=== PATIENT | male | born 1955 | race African-American/Black ===

== ENCOUNTER 2019-04-02 08:34 | Emergency (ER) | payer BC ==
[2019-04-02 09:22] LABS: Absolute Lymphocytes (CBC) 2.8 K/uL (0.7-4.9); Absolute Monocytes 0.7 K/uL (0.1-1.3); Absolute Neutrophil 4.7 K/uL (1.8-8.0); Basophils % 0.6 % (0-1.3); Eosinophils % 2.2 % (0-4.4); Hematocrit 41.8 % (39.6-49.0); Lymphocytes % 33.1 % (15.3-44.8); MPV 8.5 fL (7.6-11.3); Monocytes % 7.7 % (3.3-12.3); RBC Red Blood Cell Count 4.55 M/uL (4.33-5.43)
[2019-04-02 09:29] LABS: Albumin 3.6 g/dL (3.4-5.0); Bilirubin Direct 0.1 mg/dL (0-0.2); Bilirubin Total 0.4 mg/dL (0.2-1.0); Potassium 3.8 mmol/L (3.5-5.1); Protein, Total 7.8 g/dL (6.4-8.2)
--- NOTE | 2019-04-02 09:57 | EDPHYS ---
Physician Documentation [facility] Name: Zackery Patrick Age: 63 yrs Sex: Male : 1955 Arrival Date: 04/02/2019 Time: 08:36 Bed 14 Private MD: ED Physician Vinh Granados HPI: 04/02 08:56 This 63 yrs old Black Male presents to ER via Ambulatory with complaints of Vomiting. [facility] 08:56 The patient presents to the emergency department with vomiting, diarrhea. Onset: The [facility] symptoms/episode began/occurred today. Possible causes: unknown. The symptoms are aggravated by nothing. The symptoms are alleviated by nothing. This is a 63 year old male with a history of htn, hlp that presents to the ED with complaints of one episode of vomiting in which he noticed specs of blood. patient also states having a loose bowel movement this morning. denies fever, denies infectious exposure, denies recent antibiotic use. Patient states having a similar episode 3 years ago which resolved without any therapy. Patient denies fever, denies abdominal pain. . Historical: - Allergies: 08:42 No Known Allergies; tw2 - Home Meds: 08:42 unknown BP medication [Active]; tw2 - PMHx: 08:42 Hypertension; Hyperlipidemia; tw2 - PSHx: 08:42 None; tw2 - Immunization history:: Adult Immunizations. - Social history:: Smoking status: . - Ebola Screening: : Patient denies travel to an Ebola-affected area in the 21 days before illness onset. ROS: 08:56 Constitutional: Negative for fever, chills, and weight loss, Cardiovascular: Negative jm for chest pain, palpitations, and edema, Respiratory: Negative for shortness of breath, cough, wheezing, and pleuritic chest pain. 08:56 Back: Negative for injury and pain, MS/Extremity: Negative for injury and deformity, Neuro: Negative for headache, weakness, numbness, tingling, and seizure. 08:56 Abdomen/GI: Positive for vomiting, hematemesis, Negative for diarrhea. 08:56 All other systems are negative. Exam: 08:56 Constitutional: This is a well developed, well nourished patient who is awake, alert, jmm and in no acute distress. Head/Face: atraumatic. Eyes: EOMI, no conjunctival erythema appreciated ENT: Moist Mucus Membranes Neck: Trachea midline, Supple Chest/axilla: Normal chest wall appearance and motion. Cardiovascular: Regular rate and rhythm. No edema appreciated Respiratory: Normal respirations, no respiratory distress appreciated 08:56 Back: Normal ROM Skin: General appearance color normal MS/ Extremity: Moves all extremities, no obvious deformities appreciated, no edema noted to the lower extremities Neuro: Awake and alert, normal gait Psych: Behavior is normal, Mood is normal, Patient is cooperative and pleasant 08:56 Abdomen/GI: Inspection: abdomen appears normal, Bowel sounds: normal, Palpation: abdomen is soft and non-tender, in all quadrants. Vital Signs: 08:42 BP 131 / 80; Pulse 77; Resp 18; Temp 98.4(O); Pulse Ox 97% on R/A; Weight 131.09 kg tw2 (R); Height 5 ft. 9 in. (175.26 cm); Pain 3/10; 09:04 BP 109 / 70; Pulse 75; Resp 18; Pulse Ox 96% on R/A; hj 10:07 BP 118 / 72; Pulse 70; Resp 18; Pulse Ox 100% on R/A; ae4 08:42 Body Mass Index 42.68 (131.09 kg, 175.26 cm) tw2 MDM: 08:49 Patient medically screened. [facility] 09:55 Data reviewed: vital signs, nurses notes. Counseling: I had a detailed discussion with isaias the patient and/or guardian regarding: the historical points, exam findings, and any diagnostic results supporting the discharge/admit diagnosis, lab results, the need for outpatient follow up, to return to the emergency department if symptoms worsen or persist or if there are any questions or concerns that arise at home. ED course: Abdomen is soft and non tender to palpation. Guac is negative. Patient is advised to follow up with GI for further evaluation. Patient is otherwise given strict return precautions. Patient understood and agrees with the plan of care. . 04/02 08:52 Order name: Basic Metabolic Panel [facility] 04/02 08:52 Order name: CBC with Diff; Complete Time: 09:42 [facility] 04/02 08:52 Order name: Creatinine for Radiology; Complete Time: 09:42 [facility] 04/02 08:52 Order name: Hepatic Function; Complete Time: 09:42 [facility] 04/02 08:52 Order name: Lipase; Complete Time: 09:42 [facility] 04/02 08:54 Order name: Basic Metabolic Panel; Complete Time: 09:42 [facility] 04/02 08:52 Order name: IV Saline Lock; Complete Time: 09:02 [facility] 04/02 08:52 Order name: Labs collected and sent; Complete Time: 09:02 [facility] 04/02 08:52 Order name: Urine Dipstick-Ancillary (obtain specimen); Complete Time: 09:38 [facility] 04/02 09:37 Order name: Urine Dipstick--Ancillary (enter results) bd 04/02 09:52 Order name: Occult Blood--Ancillary bd Administered Medications: No medications were administered Disposition: 18:52 Co-signature as Attending Physician, Vinh Granados MD Available for consultation at [facility] all times. . Disposition: 04/02/19 09:57 Discharged to Home. Impression: Vomiting, Diarrhea, unspecified. - Condition is Stable. - Discharge Instructions: Diarrhea, Adult, Nausea and Vomiting, Adult. - Prescriptions for Zofran ODT 4 mg Oral tablet,disintegrating - place 1 tablet by TRANSLINGUAL route every 4-6 hours; 20 tablet. omeprazole 40 mg Oral capsule,delayed release(DR/EC) - take 1 capsule by ORAL route once daily before a meal; 14 capsule. - Medication Reconciliation Form, Thank You Letter, Antibiotic Education, Prescription Opioid Use, Work release form form. - Follow up: Cezar Cameron MD; When: 2 - 3 days; Reason: Recheck today's complaints, Continuance of care, Re-evaluation by your physician. Signatures: Dispatcher [employer] [facility] Santos Brown PA PA [facility] Melody Sanchez, RN RN tw2 Vinh Granados MD MD ps1 En Staton, RN RN ae4 Corrections: (The following items were deleted from the chart) 10:07 09:57 04/02/2019 09:57 Discharged to Home. Impression: Vomiting; Diarrhea, unspecified. ae4 Condition is Stable. Forms are Medication Reconciliation Form, Thank You Letter, Antibiotic Education, Prescription Opioid Use. Follow up: Cezar Cameron; When: 2 - 3 days; Reason: Recheck today's complaints, Continuance of care, Re-evaluation by your physician. [facility]
--- NOTE | 2019-04-02 09:57 | ER ---
Nurse's Notes [facility] Name: Zackery Patrick Age: 63 yrs Sex: Male : 1955 Arrival Date: 04/02/2019 Time: 08:36 Bed 14 Private MD: Diagnosis: Vomiting;Diarrhea, unspecified Presentation: 04/02 08:41 Presenting complaint: Patient states: i woke up this morning and vomited and i noticed tw2 a little bit of blood, i have been vomiting off and on for 1.5 years but i thought it was just the food i ate. Transition of care: patient was not received from another setting of care. Onset of symptoms was April 02, 2019. Risk Assessment: Do you want to hurt yourself or someone else? Patient reports no desire to harm self or others. Initial Sepsis Screen: Does the patient meet any 2 criteria? No. Patient's initial sepsis screen is negative. Does the patient have a suspected source of infection? No. Patient's initial sepsis screen is negative. Care prior to arrival: None. 08:41 Method Of Arrival: Ambulatory tw2 08:41 Acuity: AL 3 tw2 Triage Assessment: 08:43 General: Appears in no apparent distress. Behavior is calm, cooperative, appropriate tw2 for age. Pain: Complains of pain in abdomen. GI: Reports vomited x1 with "little bit of blood in there". Historical: - Allergies: 08:42 No Known Allergies; tw2 - Home Meds: 08:42 unknown BP medication [Active]; tw2 - PMHx: 08:42 Hypertension; Hyperlipidemia; tw2 - PSHx: 08:42 None; tw2 - Immunization history:: Adult Immunizations. - Social history:: Smoking status: . - Ebola Screening: : Patient denies travel to an Ebola-affected area in the 21 days before illness onset. Screenin:44 Abuse screen: Denies threats or abuse. Nutritional screening: No deficits noted. tw2 Tuberculosis screening: No symptoms or risk factors identified. Fall Risk None identified. Assessment: 09:00 General: Appears in no apparent distress. uncomfortable, Behavior is calm, cooperative, hj appropriate for age. Pain: Complains of pain in abdomen. Neuro: Level of Consciousness is awake, alert, obeys commands, Oriented to person, place, time, situation, Appropriate for age. Cardiovascular: Capillary refill < 3 seconds Patient's skin is warm and dry. Respiratory: Airway is patent Respiratory effort is even, unlabored, Respiratory pattern is regular, symmetrical. GI: Abdomen is non-distended, Reports vomiting. : No signs and/or symptoms were reported regarding the genitourinary system. EENT: No signs and/or symptoms were reported regarding the EENT system. Derm: No signs and/or symptoms reported regarding the dermatologic system. Musculoskeletal: No signs and/or symptoms reported regarding the musculoskeletal system. Vital Signs: 08:42 BP 131 / 80; Pulse 77; Resp 18; Temp 98.4(O); Pulse Ox 97% on R/A; Weight 131.09 kg tw2 (R); Height 5 ft. 9 in. (175.26 cm); Pain 12/29; 09:04 BP 109 / 70; Pulse 75; Resp 18; Pulse Ox 96% on R/A; hj 10:07 BP 118 / 72; Pulse 70; Resp 18; Pulse Ox 100% on R/A; ae4 08:42 Body Mass Index 42.68 (131.09 kg, 175.26 cm) tw2 ED Course: 08:36 Patient arrived in ED. mr 08:39 Santos Brown PA is PHCP. [facility] 08:39 Vinh Granados MD is Attending Physician. jmm 08:41 Melody Sanchez, RN is Primary Nurse. tw2 08:41 Bed in low position. Call light in reach. Pulse ox on. NIBP on. tw2 08:42 Triage completed. tw2 08:42 Arm band placed on. tw2 08:49 Triston Chairez, MARTHA is Primary Nurse. 09:00 Initial lab(s) drawn, by az, sent to lab. Inserted saline lock: 22 gauge in left hj antecubital area, using aseptic technique. Blood collected. 09:56 Cezar Cameron MD is Referral Physician. jm 10:06 No provider procedures requiring assistance completed. intact, bleeding controlled, No ae4 redness/swelling at site. Pressure dressing applied. Administered Medications: No medications were administered Outcome: 09:57 Discharge ordered by . jmm 10:07 Discharged to home ambulatory. ae4 10:07 Condition: stable 10:07 Discharge instructions given to patient, Instructed on discharge instructions, follow up and referral plans. medication usage, Demonstrated understanding of instructions, follow-up care, medications, Prescriptions given X 2. 10:07 Patient left the ED. ae4 Signatures: Santos Brown PA PA jmm Rivera, Mary mr Joaquin, Henry, RN RN hj Melody Sanchez RN RN tw2 En Staton RN RN ae4
[2019-04-02 10:27] LABS: Urine Blood NEGATIVE (NEG); Urine Glucose NEGATIVE (NEG); Urine Protein NEGATIVE (NEG)
== END 2019-04-02 10:07 | disposition home or self-care (01) ==
LOC: ER 08:34
DX: R19.7 Diarrhea, unspecified (principal); I10 Essential (primary) hypertension; E78.5 Hyperlipidemia, unspecified
CPT/HCPCS: 36415; 80048; 80076; 81003; 82272; 83690; 85025; 99284

== ENCOUNTER 2019-09-16 19:13 | Emergency (ER) | payer BC ==
[2019-09-16 19:41] LABS: Absolute Lymphocytes (CBC) 4.1 K/uL (0.7-4.9); Basophils % 1.4 % (0-1.3); MPV 8.7 fL (7.6-11.3); RBC Red Blood Cell Count 4.46 M/uL (4.33-5.43)
--- NOTE | 2019-09-16 19:58 | RAD REPORT ---
EXAM DESCRIPTION: RAD - Chest Single View - 09/16/2019 7:50 pm CLINICAL HISTORY: Chest pain, shortness of breath COMPARISON: CT abdomen March 2017 TECHNIQUE: AP portable chest image was obtained 1944 hour . FINDINGS: Right lung field is clear. Pleural thickening is seen along the lateral left chest. There is parenchymal stranding. This has the appearance of pleural and parenchymal scarring from prior infe ction or injury. No gross rib abnormality identified. Bone detail is limited. Heart size is normal. N o vascular engorgement. Patient has normal variant right-sided aortic arch. No measurable pleural eff usion and no pneumothorax. No acute bony abnormality seen. IMPRESSION: Left lateral pleural thickening and parenchymal stranding in the midchest most likely sc arring from trauma or prior infection. An acute lung parenchymal process is doubtful.
[2019-09-16 20:03] LABS: Protime INR 1.18
[2019-09-16 20:31] LABS: ALT/SGPT 18 U/L (12-78); AST/SGOT 13 U/L (15-37); Albumin 3.6 g/dL (3.4-5.0); Alkaline Phosphatase 92 U/L (45-117); BUN Blood Urea Nitrogen 11 mg/dL (7-18); Bicarbonate 27 mmol/L (21-32); Bilirubin Direct 0.2 mg/dL (0-0.2); Bilirubin Total 0.5 mg/dL (0.2-1.0); Glucose Level 89 mg/dL (74-106); Magnesium 1.9 mg/dL (1.8-2.4); NT PRO-BNP 47 pg/mL (<125); Potassium 3.5 mmol/L (3.5-5.1); Protein, Total 7.5 g/dL (6.4-8.2); Sodium Level 137 mmol/L (136-145); Troponin (Emerg Dept Use Only) < 0.02 ng/mL (0.0-0.045)
--- NOTE | 2019-09-16 20:48 | EDPHYS ---
Physician Documentation [facility] Name: Zackery Patrick Age: 63 yrs Sex: Male : 1955 Arrival Date: 09/16/2019 Time: 19:16 Bed 8 Private MD: ED Physician Omar Gomez HPI: 09/16 19:44 This 63 yrs old Black Male presents to ER via Wheelchair with complaints of Chest Pain. pkl 19:44 The patient or guardian reports chest pain that is located primarily in the substernal pkl area. Onset: just prior to arrival, 30 minute(s) ago. The pain does not radiate. Associated signs and symptoms: Pertinent positives: palpitations, shortness of breath. The chest pain is described as burning. The patient has not experienced similar symptoms in the past. Patient said he was upset and symptom started. Historical: - Allergies: 19:25 No Known Allergies; lp1 - Home Meds: 19:25 Unable to obtain [Active]; lp1 - PMHx: 19:25 Hyperlipidemia; Hypertension; lp1 - PSHx: 19:25 None; lp1 - Immunization history:: Adult Immunizations up to date. - Social history:: Smoking status: Patient uses tobacco products, smokes one pack cigarettes per day. - Ebola Screening: : No symptoms or risks identified at this time. ROS: 19:44 Eyes: Negative for injury, pain, redness, and discharge, ENT: Negative for injury, pkl pain, and discharge, Neck: Negative for injury, pain, and swelling. 19:44 Cardiovascular: Positive for chest pain. 19:44 Respiratory: Positive for shortness of breath. 19:44 Abdomen/GI: Negative for abdominal pain, nausea, vomiting, and diarrhea. 19:44 Back: Negative for acute changes. 19:44 : Negative for urinary symptoms. 19:44 MS/extremity: Negative for acute changes. 19:44 Skin: Negative for rash. 19:44 Neuro: Negative for altered mental status. Exam: 19:44 Head/Face: Normocephalic, atraumatic. Eyes: Pupils equal round and reactive to light, pkl extra-ocular motions intact. Lids and lashes normal. Conjunctiva and sclera are non-icteric and not injected. Cornea within normal limits. Periorbital areas with no swelling, redness, or edema. ENT: Nares patent. No nasal discharge, no septal abnormalities noted. Tympanic membranes are normal and external auditory canals are clear. Oropharynx with no redness, swelling, or masses, exudates, or evidence of obstruction, uvula midline. Mucous membranes moist. Neck: Trachea midline, no thyromegaly or masses palpated, and no cervical lymphadenopathy. Supple, full range of motion without nuchal rigidity, or vertebral point tenderness. No Meningismus. Chest/axilla: Normal chest wall appearance and motion. Nontender with no deformity. No lesions are appreciated. 19:44 Cardiovascular: Rate: tachycardic, actual rate is 134 bpm, Rhythm: regular, Heart sounds: normal, Edema: is not appreciated. 19:44 ECG was reviewed by the Attending Physician. 19:44 Respiratory: the patient does not display signs of respiratory distress, Respirations: normal, Breath sounds: are clear throughout. 19:44 Abdomen/GI: Bowel sounds: normal, Palpation: abdomen is soft and non-tender, in all quadrants. 19:44 Back: Exam negative for acute changes. 19:44 : Exam negative for acute changes. 19:44 Musculoskeletal/extremity: Exam is negative for acute changes. 19:44 Skin: Exam negative for rash. 19:44 Neuro: Orientation: is normal, Mentation: is normal, Cranial nerves: grossly normal, Motor: is normal. Vital Signs: 19:24 BP 122 / 100; Pulse 138; Resp 20; Temp 98.5(O); Pulse Ox 97% on R/A; Weight 131.09 kg; lp1 Height 5 ft. 9 in. (175.26 cm); Pain 6/10; 19:24 BP 126 / 96; lp1 19:31 BP 136 / 83; Pulse 87; Resp 17; Pulse Ox 95% on R/A; ak1 20:43 BP 127 / 86; Pulse 89; Resp 18; Temp 98.6; Pulse Ox 95% on R/A; Pain 0/10; ak1 19:24 Body Mass Index 42.68 (131.09 kg, 175.26 cm) lp1 MDM: 19:35 Patient medically screened. pkl 19:44 Data reviewed: vital signs, nurses notes. ED course: Initial EKG showed pkl supraventricular tachycardia. Patient had spontaneous cardioversion shortly after first EKG done. Patient said he felt much better and all his symptoms resolved. Repeat EKG showed normal sinus rhythm.. 20:40 ED course: Patient feeling much better. Asymptomatic. Discussed lab. and X' rays pkl results with patient. Patient does not want to observed for further evaluations. Want to go home now. Will sign AMA. Advised to follow up with Dr. Alfaro tomorrow or return to ER if symptoms recur. Patient understood instructions. 09/16 19:24 Order name: Basic Metabolic Panel; Complete Time: 20:34 lp1 09/16 19:24 Order name: CBC with Diff; Complete Time: 20:34 lp1 09/16 19:24 Order name: LFT's; Complete Time: 20:34 lp1 09/16 19:24 Order name: Magnesium; Complete Time: 20:34 lp1 09/16 19:24 Order name: NT PRO-BNP; Complete Time: 20:34 lp1 09/16 19:24 Order name: PT-INR; Complete Time: 20:34 lp1 09/16 19:24 Order name: Troponin (emerg Dept Use Only); Complete Time: 20:34 lp1 09/16 19:24 Order name: XRAY Chest (1 view); Complete Time: 20:34 lp1 09/16 19:24 Order name: EKG; Complete Time: 19:25 lp1 09/16 19:24 Order name: Cardiac monitoring; Complete Time: 19:41 lp1 09/16 19:24 Order name: EKG - Nurse/Tech; Complete Time: 19:41 lp1 09/16 19:24 Order name: IV Saline Lock; Complete Time: 19:41 lp1 09/16 19:24 Order name: Labs collected and sent; Complete Time: 19:41 lp1 09/16 19:24 Order name: O2 Per Protocol; Complete Time: 19:42 lp1 09/16 19:24 Order name: O2 Sat Monitoring; Complete Time: 19:42 lp1 Administered Medications: No medications were administered Disposition: 09/16/19 20:47 Patient has left against medical advice. Impression: Chest pain. Palpitations. - Patients states they are going to Home. - Condition is Stable. Follow up: Justin Alfaro MD; When: Tomorrow; Reason: Re-evaluation by your physician. - Problem is new. - Symptoms have improved. Signatures: Dispatcher [employer] Omar Witt MD MD pkl Etta Freed RN RN lp1 Dian Mccabe RN RN ak1 Corrections: (The following items were deleted from the chart) 20:48 20:47 09/16/2019 20:47 Patients has left against medical advice. Patient states they pkl are going to Home. Condition is Stable. Follow up: Justin Alfaro; When: Tomorrow; Reason: Re-evaluation by your physician. Problem is new. Symptoms have improved. pkl 20:51 20:48 09/16/2019 20:47 Patients has left against medical advice. Impression: Chest ak1 pain. Palpitations. Patient states they are going to Home. Condition is Stable. Follow up: Justin Alfaro; When: Tomorrow; Reason: Re-evaluation by your physician. Problem is new. Symptoms have improved. pkl
--- NOTE | 2019-09-16 20:48 | ER ---
Nurse's Notes [facility] Name: Zackery Patrick Age: 63 yrs Sex: Male : 1955 Arrival Date: 09/16/2019 Time: 19:16 Bed 8 Private MD: Diagnosis: Chest pain. Palpitations Presentation: 09/16 19:22 Presenting complaint: Patient states: Chest pain that began about 30 minutes ago, lp1 states feeling short of breath; Denies any nausea, dizziness. Transition of care: patient was not received from another setting of care. Onset of symptoms was September 16, 2019 at 18:45. Risk Assessment: Do you want to hurt yourself or someone else? Patient reports no desire to harm self or others. Initial Sepsis Screen: Does the patient meet any 2 criteria? No. Patient's initial sepsis screen is negative. Does the patient have a suspected source of infection? No. Patient's initial sepsis screen is negative. Care prior to arrival: None. 19:22 Method Of Arrival: Wheelchair lp1 19:22 Acuity: AL 2 lp1 Historical: - Allergies: 19:25 No Known Allergies; lp1 - Home Meds: 19:25 Unable to obtain [Active]; lp1 - PMHx: 19:25 Hyperlipidemia; Hypertension; lp1 - PSHx: 19:25 None; lp1 - Immunization history:: Adult Immunizations up to date. - Social history:: Smoking status: Patient uses tobacco products, smokes one pack cigarettes per day. - Ebola Screening: : No symptoms or risks identified at this time. Screenin:25 Abuse screen: Denies threats or abuse. Denies injuries from another. Nutritional lp1 screening: No deficits noted. Tuberculosis screening: No symptoms or risk factors identified. 19:32 Fall Risk None identified. ak1 Assessment: 19:32 General: Appears in no apparent distress. comfortable, Behavior is calm, cooperative, ak1 agitated, pt stated he was irritated with [employer] about the amount of money they were going to charge him. He had central chest pain upon leaving [employer]. pt stated his food is still in his car. pt was in SVT at 138bpm upon arrival to ER8 and upon IV insertion his rate converted to NSR 88bpm, with an repeat EKG done and Dr. Gomez notified. . Pain: Pain does not radiate. Pain began 30 min ago. 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 Gait is steady, Speech is normal, Facial symmetry appears normal. Cardiovascular: Reports chest pain, shortness of breath, Heart tones S1 S2 Rhythm is sinus rhythm. Respiratory: Reports shortness of breath on exertion when walking stated the pt. Respiratory effort is unlabored, Respiratory pattern is regular, Breath sounds are clear bilaterally. GI: No signs and/or symptoms were reported involving the gastrointestinal system. : No signs and/or symptoms were reported regarding the genitourinary system. EENT: No signs and/or symptoms were reported regarding the EENT system. Derm: No signs and/or symptoms reported regarding the dermatologic system. Musculoskeletal: No signs and/or symptoms reported regarding the musculoskeletal system. 20:44 Reassessment: Patient appears in no apparent distress at this time. Patient is alert, ak1 oriented x 3, equal unlabored respirations, skin warm/dry/pink. pt signing out AMA, stated to Dr. Gomez he feels better and does not wish to wait for repeat trop or EKG. Patient denies pain at this time. Patient states feeling better. Vital Signs: 19:24 BP 122 / 100; Pulse 138; Resp 20; Temp 98.5(O); Pulse Ox 97% on R/A; Weight 131.09 kg; lp1 Height 5 ft. 9 in. (175.26 cm); Pain 6/10; 19:24 BP 126 / 96; lp1 19:31 BP 136 / 83; Pulse 87; Resp 17; Pulse Ox 95% on R/A; ak1 20:43 BP 127 / 86; Pulse 89; Resp 18; Temp 98.6; Pulse Ox 95% on R/A; Pain 0/10; ak1 19:24 Body Mass Index 42.68 (131.09 kg, 175.26 cm) lp1 ED Course: 19:16 Patient arrived in ED. cl3 19:23 Triage completed. lp1 19:23 Cardiac pain workup initiated per nursing protocol. lp1 19:25 Patient has correct armband on for positive identification. Placed in gown. Bed in low lp1 position. sanding machine tender on. Pulse ox on. NIBP on. 19:25 Arm band placed on. lp1 19:25 Patient maintains SpO2 saturation greater than 95% on room air. lp1 19:31 iDan Mccabe, RN is Primary Nurse. ak1 19:32 Initial lab(s) drawn, by me, sent to lab. EKG done, by ED staff, reviewed by Omar oquendo MD. Inserted saline lock: 20 gauge in right antecubital area, using aseptic technique. Blood collected. 19:35 Omar Gomez MD is Attending Physician. pkl 19:52 XRAY Chest (1 view) In Process Unspecified. EDMS 20:44 No provider procedures requiring assistance completed. IV discontinued, intact, ak1 bleeding controlled, No redness/swelling at site. Pressure dressing applied. 20:47 Justin Alfaro MD is Referral Physician. pkl Administered Medications: No medications were administered Outcome: 20:51 AMA AMA form signed ak1 20:51 Condition: stable 20:51 Patient left the ED. ak1 Signatures: Dispatcher [employer] EDMS Omar Gomez MD MD pkl Etta Freed RN RN 1 Dian Mccabe, RN RN ak1 Tessa Mosley cl3
[2019-09-16 21:02] VITALS: O2SAT 95
[2019-09-16 21:04] VITALS: BP 127/86; TEMP 98.6
--- NOTE | 2019-09-17 12:05 | EKG ---
Test Date: 2019-09-16 Test Time: 19:22:47 Shanker Out: MIHAI MEASUREMENT RESULTS: Intervals: Rate: 134 RI: QRSD: 94 QT: 324 QTc: 483 [place]: P: RI: QRS: -22 T: 141 INTERPRETIVE STATEMENTS: Supraventricular tachycardia Left ventricular hypertrophy with repolarization abnormality Abnormal ECG Compared to ECG 07/23/2003 01:53:00 Early repolarization now present Sinus rhythm no longer present Electronically Signed On 09-17-19 12:03:36 SCHOOL PSYCHOLOGY SPECIALIST by Amrit Blanc
--- NOTE | 2019-09-17 12:05 | EKG ---
Test Date: 2019-09-16 Test Time: 19:29:58 Battery Container Inspector: MIHAI MEASUREMENT RESULTS: Intervals: Rate: 84 AL: 180 QRSD: 102 QT: 384 QTc: 453 [place]: P: 44 AL: 180 QRS: -17 T: 78 INTERPRETIVE STATEMENTS: Normal sinus rhythm Left ventricular hypertrophy with repolarization abnormality Abnormal ECG Compared to ECG 09/16/2019 19:22:47 Supraventricular tachycardia no longer present Electronically Signed On 09-17-19 12:03:35 FRAME STRIPPER AND CRUSHER by Amrit Blanc
== END 2019-09-16 20:51 | disposition left against medical advice (07) ==
LOC: ER 19:13
DX: R07.9 Chest pain, unspecified (principal); R00.2 Palpitations; F17.210 Nicotine dependence, cigarettes, uncomplicated
CPT/HCPCS: 36415; 71045; 80048; 80076; 83735; 83880; 84484; 85025; 85610; 93005; 99285

== ENCOUNTER 2022-04-07 16:40 | Emergency (ER) | payer BC ==
[2022-04-07 17:31] LABS: Absolute Lymphocytes (CBC) 2.5 K/uL (0.7-4.9); Hematocrit 37.6 % (39.6-49.0); RBC Red Blood Cell Count 4.09 M/uL (4.33-5.43)
[2022-04-07 17:53] LABS: Albumin 3.1 g/dL (3.4-5.0); Bilirubin Total 0.2 mg/dL (0.2-1.0); Potassium 3.8 mmol/L (3.5-5.1)
--- NOTE | 2022-04-07 18:45 | RAD REPORT ---
EXAM DESCRIPTION: CTAbdomen Pelvis W Contrast - 04/07/2022 6:32 pm CLINICAL HISTORY: lower GI bleed COMPARISON: No comparisons TECHNIQUE: CT of the abdomen and pelvis was performed with contrast. All CT scans are performed using dose optimization technique as appropriate and may include automated exposure control or mA/KV adjustment according to patient size. FINDINGS: Lower chest: Scarring in the left lower lobe. Small hiatal hernia. Thickened distal esopha ricardo which may reflect esophagitis. Liver: Too small to characterize liver lesions which are likely benign. Biliary: No biliary ductal dilatation. Stomach: No significant focal abnormality. Duodenum: No significant focal abnormality. Pancreas: No significant abnormality. Spleen: No significant abnormality. Adrenal: No suspicious lesions. Kidney/ureter: No hydronephrosis. No renal calculi. Too small to characterize and/or benign appearing renal lesions are noted. Retroperitoneum: No retroperitoneal adenopathy. Vascular: No aneurysm. Bowel: No significant focal abnormality. Normal appendix. Peritoneum: No ascites or free air. Bladder: Grossly unremarkable. Reproductive: No adnexal masses. Bones: No acute fracture. Other: n/a IMPRESSION: No acute intra-abdominal or pelvic finding. No specific CT findings to explain reported lower gastrointestinal bleeding.
--- NOTE | 2022-04-07 18:51 | EDPHYS ---
Physician Documentation [facility] Name: Zackery Patrick Age: 66 yrs Sex: Male : 1955 Arrival Date: 04/07/2022 Time: 16:43 Bed DIS1 Private MD: Justin Alfaro R ED Physician Alberto Murphy HPI: 04/07 17:09 This 66 yrs old Black Male presents to ER via Ambulatory with complaints of Bloody [facility] Stools. 17:09 This is a 66-year-old male with history of hyperlipidemia the presents to the emergency [facility] department with complaints of lower abdominal pain bright red stools on bowel movements. Patient denies weakness or fatigue. Denies fever or chills.. Historical: - Allergies: 16:50 No Known Allergies; aa5 - PMHx: 16:50 Hyperlipidemia; Hypertension; aa5 - Immunization history:: Adult Immunizations unknown. - Social history:: Smoking status: Patient reports the use of cigarette tobacco products, smokes one pack cigarettes per day. ROS: 17:09 Constitutional: Negative for fever, chills, and weight loss, Cardiovascular: Negative jmm for chest pain, palpitations, and edema, Respiratory: Negative for shortness of breath, cough, wheezing, and pleuritic chest pain. 17:09 Abdomen/GI: Positive for rectal bleeding. 17:09 All other systems are negative. Exam: 17:09 Constitutional: This is a well developed, well nourished patient who is awake, alert, jmm and in no acute distress. Head/Face: atraumatic. Eyes: EOMI, no conjunctival erythema appreciated ENT: Moist Mucus Membranes Neck: Trachea midline, Supple Chest/axilla: Normal chest wall appearance and motion. Cardiovascular: Regular rate and rhythm. No edema appreciated Respiratory: Normal respirations, no respiratory distress appreciated 17:09 Skin: General appearance color normal MS/ Extremity: Moves all extremities, no obvious deformities appreciated, no edema noted to the lower extremities Neuro: Awake and alert Psych: Behavior is normal, Mood is normal, Patient is cooperative and pleasant 17:09 Abdomen/GI: Inspection: abdomen appears normal, Bowel sounds: normal, Palpation: abdomen is soft and non-tender, in all quadrants. Vital Signs: 16:50 BP 157 / 74; Pulse 65; Resp 18 S; Temp 98.8(TE); Pulse Ox 100% on R/A; Weight 131.09 kg aa5 (R); Height 5 ft. 9 in. (175.26 cm) (R); 16:50 Body Mass Index 42.68 (131.09 kg, 175.26 cm) aa5 MDM: 17:09 Patient medically screened. [facility] 18:49 Data reviewed: vital signs, nurses notes. Counseling: I had a detailed discussion with [facility] the patient and/or guardian regarding: the historical points, exam findings, and any diagnostic results supporting the discharge/admit diagnosis, radiology results, the need for outpatient follow up, to return to the emergency department if symptoms worsen or persist or if there are any questions or concerns that arise at home. 18:49 ED course: Lab labs and imaging studies were unremarkable. Abdomen is currently [facility] nontender to palpation. CT was negative for any acute process. Patient most likely has a internal hemorrhoid. Patient prescribed suppositories steroids. Advised follow GI and otherwise given strict return precautions. Patient understood and agrees plan of care.. 04/07 17:10 Order name: CBC with Diff; Complete Time: 17:54 [facility] 04/07 17:10 Order name: CMP; Complete Time: 17:54 [facility] 04/07 17:10 Order name: Lipase; Complete Time: 17:54 [facility] 04/07 17:10 Order name: IV Saline Lock; Complete Time: 17:23 [facility] 04/07 17:10 Order name: Labs collected and sent; Complete Time: 17:23 [facility] 04/07 17:10 Order name: CT Abd/Pelvis - IV Contrast Only; Complete Time: 18:49 [facility] Administered Medications: No medications were administered Disposition: 04/08 08:10 Co-signature as Attending Physician, Alberto Murphy MD I agree with the assessment ma2 and plan of care. Disposition Summary: 04/07/22 18:51 Discharge Ordered Location: Home [facility] Condition: Stable [facility] Diagnosis - Lower Gastrointestinal Hemorrage [facility] - Lower Gastrointestinal Hemorrhage [facility] Followup: [facility] - With: Sumit Vicente MD - When: 2 - 3 days - Reason: Recheck today's complaints, Continuance of care, Re-evaluation by your physician Discharge Instructions: - Discharge Summary Sheet [facility] - Lower Gastrointestinal Bleeding [facility] Forms: - Medication Reconciliation Form [facility] - Thank You Letter isaias - Antibiotic Education jmm - Prescription Opioid Use jm - Work release form jb4 Prescriptions: - Anusol-HC 25 mg Rectal Suppository - insert 1 suppository by RECTAL route every 12 hours As needed; 20 suppository; jmm Refills: 0, Product Selection Permitted - Colace 100 mg Oral Tablet - take 1 tablet by ORAL route every 12 hours; 14 tablet; Refills: 0, Product [facility] Selection Permitted Signatures: Dispatcher [employer] Santos Gale PA PA jmm Calderon, Audri, RN RN aa5 Alberto Murphy MD MD ma2
--- NOTE | 2022-04-07 18:51 | ER ---
Nurse's Notes [facility] Name: Zackery Patrick Age: 66 yrs Sex: Male : 1955 Arrival Date: 04/07/2022 Time: 16:43 Bed DIS1 Private MD: Justin Alfaro R Diagnosis: Lower Gastrointestinal Hemorrhage Presentation: 04/07 16:50 Chief complaint: Patient states: noticed dark red blood in stool today x 1 time and aa5 reports it was diarrhea. Denies nausea/vomiting. Denies abd pain. Coronavirus screen: At this time, the client does not indicate any symptoms associated with coronavirus-19. Ebola Screen: No symptoms or risks identified at this time. Initial Sepsis Screen: Does the patient meet any 2 criteria? No. Patient's initial sepsis screen is negative. Does the patient have a suspected source of infection? No. Patient's initial sepsis screen is negative. Risk Assessment: Do you want to hurt yourself or someone else? Patient reports no desire to harm self or others. Onset of symptoms was March 2022. 16:50 Acuity: AL 3 aa5 16:50 Method Of Arrival: Ambulatory aa5 Historical: - Allergies: 16:50 No Known Allergies; aa5 - PMHx: 16:50 Hyperlipidemia; Hypertension; aa5 - Immunization history:: Adult Immunizations unknown. - Social history:: Smoking status: Patient reports the use of cigarette tobacco products, smokes one pack cigarettes per day. Vital Signs: 16:50 BP 157 / 74; Pulse 65; Resp 18 S; Temp 98.8(TE); Pulse Ox 100% on R/A; Weight 131.09 kg aa5 (R); Height 5 ft. 9 in. (175.26 cm) (R); 16:50 Body Mass Index 42.68 (131.09 kg, 175.26 cm) aa5 ED Course: 16:43 Patient arrived in ED. as 16:46 Justin Alfaro MD is Private Physician. as 16:51 Arm band placed on. aa5 16:52 Triage completed. aa5 16:55 [facility] 16:55 Alberto Murphy MD is Attending Physician. [facility] 17:20 Inserted saline lock: 20 gauge in left upper arm, using aseptic technique. Blood iw collected. 17:20 Initial lab(s) drawn, by me, sent to lab. iw 18:34 CT Abd/Pelvis - IV Contrast Only In Process Unspecified. EDMS 18:49 Sumti Vicente MD is Referral Physician. isaias Administered Medications: No medications were administered Outcome: 18:51 Discharge ordered by . isaias 19:19 Patient left the ED. iw Signatures: Dispatcher [employer] EDMS Santos Brown PA PA jmm Martinez, Amelia as Williams, Irene, RN RN iw Harleen Welch, RN RN aa5
[2022-04-07 19:32] VITALS: BP 157/74; TEMP 98.8; O2SAT 100
== END 2022-04-07 19:19 | disposition home or self-care (01) ==
LOC: ER 16:40
DX: K92.2 Gastrointestinal hemorrhage, unspecified (principal); I10 Essential (primary) hypertension; F17.210 Nicotine dependence, cigarettes, uncomplicated
CPT/HCPCS: 85025; 36415; 83690; 80053; 74177; 99283; Q9967

== ENCOUNTER 2023-03-30 00:32 | Emergency (ER) | payer BC ==
--- OUTSIDE RECORDS SUMMARY | 2023-03-30 00:38 | XMS REPORT | Continuity of Care Document ---
:1955 Author Organization [facility] t Address [address] [place] [address] Care Team Providers Name Role Phone Unavailable Unavailable Unavailable Problems This patient has no known problems. Allergies, Adverse Reactions, Alerts This patient has no known allergies or adverse reactions. Medications This patient has no known medications. Procedures This patient has no known procedures. Encounters Start End Encounter Admission Attending Care Care Encounter Source Date/Time Date/Time Type Type Clinicians Facility Department ID 2022-12-27 2022-12-27 Outpatient [facility] [id number] Martin 10:28:58 10:28:58 [id number] F Pedro 2022-12-25 2022-12-25 Outpatient [facility] [id number] Martin 10:50:37 10:50:37 [id number] [facility] Results Test Description Test Time Test Comments Results Result Comments Source CT/NG, NAAT, URINE 2022-12-26 20:23:55 Test Item Value Reference Range Interpretation Comme nts CHLAMYDIA, NAAT, URINE (test NEGATIVE NEGATIVE Testing is performed with Jesus code = 15159) MARTHA [employer]0/880 0 systems usingreal-time polymerase chain reaction (PCR) method. A negative result does not exclude low level infection, spec imensampling error, or collection e rror. GONORRHEA, NAAT, URINE (test NEGATIVE NEGATIVE Testing is performed with Jesus code = 22100) MARTHA 6800/880 0 systems usingreal-time polymerase chain reaction (PCR) method. A negative result does not exclude low level infection, spec imensampling error, or collection e rror. HERPES SIMPLEX [id number] 14:23:53 Test Item Value Reference Range Interpretation Comments HERPES SIMPLEX IgM 0.59 INDEX SEE BELOW INTERPRE TATION UNITS (test code = RANGE --------- ----- 10676) ----- ----- NEG ATIVE INDEX <=0.89 EQ UIVOCAL INDEX 0.90-1.09 POSITIVE INDEX >=1.10 [id number] 04:20:56 Test Item Value Reference Range Interpretation Comments RPR RESULT (test code = NON-REACTIVE NON-REACTIVE 3501) RPR TITER (test code = 3500) NOT INDIC. TITER NOT INDIC. HIV 1/2 4TH GEN, RFLX [id number] 04:17:35 Test Item Value Reference Range Interpretation Comments HIV 1/2 4TH GEN, RFLX CONF (test NON-REACTIVE NON-REACTIVE code = 3514) HEPATITIS PANEL, [id number] 04:17:35 Test Item Value Reference Range Interpretation Comments HEPATITIS A IgM (test NON-REACTIVE NON-REACTIVE code = 60143) HEPATITIS B CORE IgM NON-REACTIVE NON-REACTIVE (test code = 4644) HEPATITIS B SURF AG NON-REACTIVE NON-REACTIVE (test code = 2739) HEPATITIS C ANTIBODY NON-REACTIVE NON-REACTIVE (test code = 4675) INTERPRETATION (NOTE) Hepatitis A HEPATITIS A: (test code sero logy shows no = 2552) evidence of acu te hepatitis A. INTERPRETATION (NOTE) Hepatitis B HEPATITIS B: (test code sero logy shows no = 88209) evidence of acu te hepatitis B and no indication of exposure to hepatitis B vir us in the previous isreal eight months. INTERPRETATION (NOTE) Hepatitis C HEPATITIS C: (test code sero logy shows no = 25870) evidence of exposure to hepatitisC viru s at this time. I t can take up to 12 months after exposure tothe hepatitis C vir us for antibodies to become detectab le in the blood in certain patient s. HERPES SIMPLEX 1/2 [id number] 04:17:35 Test Item Value Reference Range Interpretation Comments HERPES SIMPLEX 1 105.000 INDEX SEE BELOW H INTERPRET ATION UNITS IgG (test code = RANGE ----- --------- 49491) ----- ----- NON-REACTIVE IN DEX <1.000 REACTIVE INDEX >=1.000 HERPES SIMPLEX 2 0.070 INDEX SEE BELOW INTERPRETA TION UNITS IgG (test code = RANGE ----- --------- 82687) ----- ----- NON-REACTIVE IN DEX <1.000 REACTIVE INDEX >=1.000 [facility] has important patho logy staff changes e ffective 12/20/2022. New pathology staff will provide uninter rupted, excellent patie nt care and clinical consultation. S ee URL: [email or web address]. UNLESS OTHERWISE INDIC ATED, ALL TESTING PER FORMED AT [facility]. [address] [place] [address] LABORATOR Y DIRECTOR: Jessie RODRIGUEZ LETY NUMBER [id number] CAP ACCREDITATION N O. [id number]
[2023-03-30] MEDS ORDERED: NA CHLORIDE 0.9% 1,000 ML ONE (00:56)
[2023-03-30] MEDS ORDERED: DIPHENHYDRAMINE 50 MG/ML VIAL ONE (01:24)
[2023-03-30 01:32] LABS: Absolute Lymphocytes (CBC) 2.3 K/uL (0.7-4.9); Lymphocytes % 15.7 % (15.3-44.8); MCV 92.3 fL (80-100); MPV 8.8 fL (7.6-11.3); RBC Red Blood Cell Count 5.42 M/uL (4.33-5.43)
[2023-03-30 03:23] LABS: Albumin 3.3 g/dL (3.4-5.0); Bilirubin Total 0.5 mg/dL (0.2-1.0); Potassium 3.4 mEq/L (3.5-5.1); Protein, Total 7.4 g/dL (6.4-8.2); Troponin High Sensitivity 8.9 pg/mL (<58.9)
--- NOTE | 2023-03-30 03:31 | ER ---
Nurse's Notes [facility] Name: Zackery Patrick Age: 67 yrs Sex: Male : 1955 Arrival Date: 03/30/2023 Time: 00:32 Bed 14 Private MD: Diagnosis: Diarrhea, foodborne illness, renal insufficiency Presentation: 03/30 00:35 Chief complaint: EMS states: patient reports eating cashews three hours ago and right ha1 after he developed a really bad abdominal pain and diarrhea. After an hour of diarrhea he started to feel weak and decided to call us. at this moment he denies any pain or diarrhea. 00:35 Coronavirus screen: Vaccine status: Patient reports being unvaccinated. Initial Sepsis ha1 Screen: Does the patient meet any 2 criteria? No. Patient's initial sepsis screen is negative. Does the patient have a suspected source of infection? No. Patient's initial sepsis screen is negative. Risk Assessment: Do you want to hurt yourself or someone else? Patient reports no desire to harm self or others. Onset of symptoms was March 30, 2023. 00:35 Method Of Arrival: EMS: [facility] ha1 00:35 Acuity: AL 3 ha1 03:46 Ebola Screen: No symptoms or risks identified at this time. ha1 Triage Assessment: 00:35 General: Appears comfortable, Behavior is calm, cooperative. Pain: Denies pain. Neuro: ha1 Level of Consciousness is awake, alert, obeys commands, Oriented to person, place, time, situation. Cardiovascular: Patient's skin is warm and dry. Respiratory: Airway is patent Respiratory effort is even, unlabored, Respiratory pattern is regular, symmetrical. GI: Abdomen is round obese, Reports diarrhea. GI: Bowel sounds present X 4 quads. : No signs and/or symptoms were reported regarding the genitourinary system. Musculoskeletal: Circulation, motion, and sensation intact. Historical: - Allergies: 00:35 No Known Allergies; ha1 - PMHx: 00:35 Hyperlipidemia; Hypertension; ha1 - PSHx: 00:35 None; ha1 - Immunization history:: Adult Immunizations up to date. - Social history:: Smoking status: Patient reports the use of cigarette tobacco products, smokes one pack cigarettes per day. Screenin:35 [facility] ED Fall Risk Assessment (Adult) History of falling in the last 3 months, ha1 including since admission No falls in past 3 months (0 pts) Confusion or Disorientation No (0 pts) Intoxicated or Sedated No (0 pts) Impaired Gait No (0 pts) Mobility Assist Device Used No (0 pt) Altered Elimination No (0 pt) Score/Fall Risk Level 0 - 2 = Low Risk Oriented to surroundings, Maintained a safe environment, Hourly rounding (assess needs \T\ fall precautionary measures) done. 01:38 Abuse screen: Denies threats or abuse. Denies injuries from another. Nutritional ha1 screening: No deficits noted. Tuberculosis screening: No symptoms or risk factors identified. Assessment: 00:35 Reassessment: see triage assessment. ha1 01:35 Reassessment: Patient and/or family updated on plan of care and expected duration. Pain ha1 level reassessed. Patient is alert, oriented x 3, equal unlabored respirations, skin warm/dry/pink. 02:35 Reassessment: Patient and/or family updated on plan of care and expected duration. Pain ha1 level reassessed. Patient is alert, oriented x 3, equal unlabored respirations, skin warm/dry/pink. 03:30 Reassessment: Patient and/or family updated on plan of care and expected duration. Pain ha1 level reassessed. Patient is alert, oriented x 3, equal unlabored respirations, skin warm/dry/pink. Vital Signs: 00:35 BP 124 / 58; Pulse 76; Resp 19; Temp 97.9; Pulse Ox 97% on R/A; Weight 130.18 kg; ha1 01:35 BP 108 / 70; Pulse 59; Resp 19 S; Pulse Ox 97% on R/A; ha1 02:30 BP 124 / 58; Pulse 64; Resp 18 S; Pulse Ox 98% on R/A; ha1 03:30 BP 119 / 74; Pulse 75; Resp 16 S; Pulse Ox 98% on R/A; ha1 ED Course: 03/29 00:35 Patient has correct armband on for positive identification. Placed in gown. Bed in low ha1 position. Call light in reach. Side rails up X 1. 03/30 00:35 Patient arrived in ED. rv1 00:36 Roge Leal MD is Attending Physician. sp3 00:44 Menchaca, Ami, RN is Primary Nurse. ha1 01:14 Inserted saline lock: 22 gauge in left hand, using aseptic technique. Blood collected. ds4 01:35 Triage completed. ha1 01:39 Arm band placed on right wrist. ha1 03:45 No provider procedures requiring assistance completed. IV discontinued, intact, ha1 bleeding controlled, No redness/swelling at site. Pressure dressing applied. Administered Medications: 00:53 Drug: NS 0.9% IV 1000 ml Route: IV; Rate: 1 bolus; Site: right hand; ha1 01:19 Drug: diphenhydrAMINE IVP 12.5 mg Route: IVP; Site: right hand; ha1 02:00 Follow up: Response: No adverse reaction ha1 Medication: 03:46 VIS not applicable for this client. ha1 Outcome: 03:30 Discharge ordered by . sp3 03:46 Discharged to home ambulatory, with family. ha1 03:46 Condition: stable 03:46 Discharge instructions given to patient, family, Instructed on discharge instructions, follow up and referral plans. Demonstrated understanding of instructions, follow-up care. 03:50 Patient left the ED. ha1 Signatures: Dominick Teixeira ds4 Roge Leal MD MD sp3 Ami Menchaca, RN RN ha1 Sneha Atkinson rv1
--- NOTE | 2023-03-30 03:31 | EDPHYS ---
Physician Documentation [facility] Name: Zackery Patrick Age: 67 yrs Sex: Male : 1955 Arrival Date: 03/30/2023 Time: 00:32 Bed 14 Private MD: ED Physician Roge Leal HPI: 03/30 00:41 This 67 yrs old Black Male presents to ER via Unassigned with complaints of Diarrhea sp3 and abdominal cramping, now resolved. 00:41 67-year-old male with history of hypertension who while at work ate a packet of cashews sp3 and approximately 15 to 30 minutes subsequent to that patient had profound abdominal cramping and diarrhea leading to a syncopal episode without any injury or fall or other prodrome. Patient's symptoms are now fully resolved and he denies having any abdominal pain, further feelings of syncope or near syncope, chest pain, shortness of breath, fever, further urge for diarrhea, or any other signs or symptoms on ROS at this time. Patient initially was slightly hypotensive with blood pressure in the 90s with normal heart rate. EMS gave IV fluids which has increased his blood pressure to the 100s. Patient currently has no complaints whatsoever. No prior history of syncope or cardiac event.. Historical: - Allergies: 00:35 No Known Allergies; ha1 - PMHx: 00:35 Hyperlipidemia; Hypertension; ha1 - PSHx: 00:35 None; ha1 - Immunization history:: Adult Immunizations up to date. - Social history:: Smoking status: Patient reports the use of cigarette tobacco products, smokes one pack cigarettes per day. ROS: 00:42 Constitutional: Negative for fever, chills, and weight loss, Eyes: Negative for injury, sp3 pain, redness, and discharge, ENT: Negative for injury, pain, and discharge, Neck: Negative for injury, pain, and swelling, Respiratory: Negative for shortness of breath, cough, wheezing, and pleuritic chest pain, Back: Negative for injury and pain, MS/Extremity: Negative for injury and deformity, Skin: Negative for injury, rash, and discoloration, Psych: Negative for depression, anxiety, suicide ideation, homicidal ideation, and hallucinations, Allergy/Immunology: Negative for hives, rash, and allergies, Endocrine: Negative for neck swelling, polydipsia, polyuria, polyphagia, and marked weight changes, Hematologic/Lymphatic: Negative for swollen nodes, abnormal bleeding, and unusual bruising. 00:42 All other systems are negative. Exam: 00:43 Constitutional: This is a well developed, well nourished patient who is awake, alert, sp3 and in no acute distress. Head/Face: Normocephalic, atraumatic. Eyes: Pupils equal round and reactive to light, extra-ocular motions intact. Lids and lashes normal. Conjunctiva and sclera are non-icteric and not injected. Cornea within normal limits. Periorbital areas with no swelling, redness, or edema. ENT: Nares patent. No nasal discharge, no septal abnormalities noted. External auditory canals are clear. Oropharynx with no redness, swelling, or masses, exudates, or evidence of obstruction, uvula midline. Mucous membranes moist. Neck: Trachea midline, no thyromegaly or masses palpated, and no cervical lymphadenopathy. Supple, full range of motion without nuchal rigidity, or vertebral point tenderness. No Meningismus. Chest/axilla: Normal chest wall appearance and motion. Nontender with no deformity. No lesions are appreciated. Cardiovascular: Regular rate and rhythm with a normal S1 and S2. No gallops, murmurs, or rubs. Normal PMI, no JVD. No pulse deficits. Respiratory: Lungs have equal breath sounds bilaterally, clear to auscultation and percussion. No rales, rhonchi or wheezes noted. No increased work of breathing, no retractions or nasal flaring. Abdomen/GI: Soft, non-tender, with normal bowel sounds. No distension or tympany. No guarding or rebound. No evidence of tenderness throughout. Back: No spinal tenderness. No costovertebral tenderness. Full range of motion. Skin: Warm, dry with normal turgor. Normal color with no rashes, no lesions, and no evidence of cellulitis. MS/ Extremity: Pulses equal, no cyanosis. Neurovascular intact. Full, normal range of motion. Neuro: Awake and alert, GCS 15, oriented to person, place, time, and situation. Cranial nerves II-XII grossly intact. Motor strength 5/5 in all extremities. Sensory grossly intact. Cerebellar exam normal. Normal gait. Psych: Awake, alert, with orientation to person, place and time. Behavior, mood, and affect are within normal limits. 01:20 ECG was reviewed by the Attending Physician. EKG demonstrates NSR at 60 bpm with normal sp3 intervals, leftward axis, nonspecific diffuse ST/T changes without evidence of acute ischemia. Vital Signs: 00:35 BP 124 / 58; Pulse 76; Resp 19; Temp 97.9; Pulse Ox 97% on R/A; Weight 130.18 kg; ha1 01:35 BP 108 / 70; Pulse 59; Resp 19 S; Pulse Ox 97% on R/A; ha1 02:30 BP 124 / 58; Pulse 64; Resp 18 S; Pulse Ox 98% on R/A; ha1 03:30 BP 119 / 74; Pulse 75; Resp 16 S; Pulse Ox 98% on R/A; ha1 MDM: 00:41 Patient medically screened. sp3 00:43 Data reviewed: vital signs, nurses notes, EMS record, lab test result(s), EKG. ED sp3 course: 67-year-old male with now resolved diarrhea episode after eating cashews. Patient has no abdominal pain whatsoever on exam and normal vital signs. We will obtain laboratory values, troponin, EKG and general IV fluid supportive care. If work-up is negative, patient continues to feel normal, we will safely discharge patient home. I am not highly suspicious for acute coronary syndrome, aortic or vascular event, TIA/CVA, sepsis, shock, electrolyte abnormality, or any other critical diagnosis at this time. Patient likely had vagal syncope. Disposition likely home pending work-up and patient reevaluation.. 03:30 ED course: Patient still with no pain and feels much better. Have informed him about sp3 his mildly elevated creatinine for which she will follow-up with his PCP. No admission criteria currently and we will safely discharge him home.. 03/30 00:36 Order name: CBC with Diff; Complete Time: 01:57 sp3 03/30 00:36 Order name: CMP; Complete Time: 03:27 sp3 03/30 00:36 Order name: Lipase; Complete Time: 03:27 sp3 03/30 00:36 Order name: Troponin High Sensitivity; Complete Time: 03:27 sp3 03/30 00:36 Order name: IV Saline Lock; Complete Time: 00:52 sp3 03/30 00:36 Order name: Labs collected and sent; Complete Time: 00:52 sp3 03/30 00:36 Order name: EKG - Nurse/Tech; Complete Time: 01:14 sp3 Administered Medications: 00:53 Drug: NS 0.9% IV 1000 ml Route: IV; Rate: 1 bolus; Site: right hand; ha1 01:19 Drug: diphenhydrAMINE IVP 12.5 mg Route: IVP; Site: right hand; ha1 02:00 Follow up: Response: No adverse reaction ha1 Disposition Summary: 03/30/23 03:30 Discharge Ordered Location: Home sp3 Condition: Stable sp3 Diagnosis - Diarrhea, foodborne illness, renal insufficiency sp3 Followup: sp3 - With: Private Physician - When: Upon discharge from the Emergency Department - Reason: Further diagnostic work-up, Continuance of care Discharge Instructions: - Discharge Summary Sheet sp3 - Food Poisoning sp3 Forms: - Medication Reconciliation Form sp3 - Thank You Letter sp3 - Antibiotic Education sp3 - Prescription Opioid Use sp3 - Work release form ha1 Signatures: Dispatcher [employer] Roge Padilla MD MD sp3 Ami Menchaca RN RN ha1
[2023-03-30 04:05] VITALS: TEMP 97.9
[2023-03-30 04:17] VITALS: O2SAT 98
[2023-03-30 04:18] VITALS: BP 119/74
--- NOTE | 2023-03-30 14:46 | EKG ---
Test Date: 2023-03-30 Test Time: 01:09:50 Windlasser: DEON MEASUREMENT RESULTS: Intervals: Rate: 55 ME: 166 QRSD: 86 QT: 410 QTc: 392 [place]: P: 38 ME: 166 QRS: -12 T: -14 INTERPRETIVE STATEMENTS: Sinus bradycardia Left ventricular hypertrophy with repolarization abnormality Abnormal ECG Compared to ECG 09/16/2019 19:29:58 Sinus rhythm no longer present Electronically Signed On 03-30-23 14:44:18 CDT by Amrit Blanc
== END 2023-03-30 03:50 | disposition home or self-care (01) ==
LOC: ER 00:32
DX: A05.9 Bacterial foodborne intoxication, unspecified (principal); N28.9 Disorder of kidney and ureter, unspecified; I10 Essential (primary) hypertension; E78.5 Hyperlipidemia, unspecified; F17.210 Nicotine dependence, cigarettes, uncomplicated
CPT/HCPCS: 93005; 85025; 36415; 84484; 83690; 80053; 96374; 99284; J1200; J7030

== ENCOUNTER 2023-08-09 19:52 | Emergency (ER) | payer BC ==
--- NOTE | 2023-08-09 20:38 | ER ---
Nurse's Notes [facility] Name: Zackery Patrick Age: 67 yrs Sex: Male : 1955 Arrival Date: 08/09/2023 Time: 19:52 Bed 5 Private MD: Diagnosis: Cellulitis of left toe Presentation: 08/09 19:57 Chief complaint: Patient states: bleeding and swelling to left great toe nail beginning lg3 3-4 days ago. Coronavirus screen: Client denies travel out of the [place] in the last 14 days. At this time, the client does not indicate any symptoms associated with coronavirus-19. Ebola Screen: No symptoms or risks identified at this time. Initial Sepsis Screen: Does the patient meet any 2 criteria? No. Patient's initial sepsis screen is negative. Does the patient have a suspected source of infection? No. Patient's initial sepsis screen is negative. Risk Assessment: Do you want to hurt yourself or someone else? Patient reports no desire to harm self or others. Onset of symptoms is unknown. 19:57 Method Of Arrival: Ambulatory lg3 19:57 Acuity: AL 3 lg3 Triage Assessment: 19:59 General: Appears in no apparent distress. comfortable, Behavior is calm, cooperative. lg3 Pain: Complains of pain in Left first toenail Pain currently is 7 out of 10 on a pain scale. EENT: No deficits noted. No signs and/or symptoms were reported regarding the EENT system. Neuro: No deficits noted. Hinton Agitation-Sedation Scale (RASS): 0 - Alert and Calm Level of Consciousness is awake, alert, obeys commands, Oriented to person, place, time, situation. Cardiovascular: No deficits noted. Denies chest pain, shortness of breath, Capillary refill < 3 seconds Clubbing of nail beds is absent JVD is absent Patient's skin is warm and dry. Respiratory: No deficits noted. Airway is patent Respiratory effort is even, unlabored, Respiratory pattern is regular, symmetrical. GI: No deficits noted. No signs and/or symptoms were reported involving the gastrointestinal system. : No deficits noted. No signs and/or symptoms were reported regarding the genitourinary system. Derm: Skin is intact, is healthy with good turgor, Skin is dry, Skin is normal, Skin temperature is warm Wound noted Left first toenail. Musculoskeletal: Circulation, motion, and sensation intact. Range of motion: intact in all extremities, Swelling present in Left first toenail. Historical: - Allergies: 19:59 No Known Allergies; lg3 - Home Meds: 19:59 unknown BP medication [Active]; unknown cholesterol medication [Active]; lg3 - PMHx: 19:59 Hyperlipidemia; Hypertension; lg3 - PSHx: 19:59 None; lg3 - Immunization history:: Adult Immunizations up to date, Client reports receiving the 2nd dose of the Covid vaccine, Flu vaccine is not up to date. - Social history:: Smoking status: Patient reports the use of cigarette tobacco products, smokes one pack cigarettes per day. Patient/guardian denies using alcohol, street drugs. Screenin:08 [facility] ED Fall Risk Assessment (Adult) History of falling in the last 3 months, kl including since admission No falls in past 3 months (0 pts) Confusion or Disorientation No (0 pts) Intoxicated or Sedated No (0 pts) Impaired Gait No (0 pts) Mobility Assist Device Used No (0 pt) Altered Elimination No (0 pt) Score/Fall Risk Level 0 - 2 = Low Risk Oriented to surroundings, Maintained a safe environment. Abuse screen: Denies threats or abuse. Nutritional screening: No deficits noted. Tuberculosis screening: No symptoms or risk factors identified. Assessment: 21:07 General: Appears in no apparent distress. Behavior is calm, cooperative. Pain: Complains of pain in Left first toenail Pain currently is 3 out of 10 on a pain scale. Neuro: No deficits noted. Cardiovascular: No deficits noted. Respiratory: No deficits noted. GI: No deficits noted. No signs and/or symptoms were reported involving the gastrointestinal system. : No deficits noted. No signs and/or symptoms were reported regarding the genitourinary system. Derm: Wound noted Left first toenail Reports pain. Vital Signs: 19:57 BP 149 / 80; Pulse 69; Resp 17 S; Temp 98.8(O); Pulse Ox 97% on R/A; Weight 130.63 kg lg3 (R); Height 5 ft. 9 in. (R); Pain 7/10; 21:08 BP 127 / 73; Pulse 63; Resp 18; Pulse Ox 98% on R/A; kl 19:57 Body Mass Index 42.53 (130.63 kg, 175.26 cm) lg3 19:57 Pain Scale: Adult lg3 ED Course: 19:55 Patient arrived in ED. jj6 19:59 Triage completed. lg3 19:59 Arm band placed on right wrist. lg3 20:05 Babar Roth MD is Attending Physician. ec2 20:15 Albert Orona, RN is Primary Nurse. bp 21:08 No provider procedures requiring assistance completed. Patient did not have IV access kl during this emergency room visit. Wound care: located on Left first toenail was cleaned with dressed with 4X4s, cling, Patient tolerated well. Administered Medications: 20:24 CANCELLED (Physician Discretion): diazepam5 mg IVP once ec2 20:25 CANCELLED (Physician Discretion): aspirinchewable tablet 324 mg PO once; 81 mg tablets ec2 x 4 20:45 Drug: Doxycycline PO 100 mg PO once Route: PO; bp 21:05 Follow up: Response: No adverse reaction bp Medication: 21:09 VIS not applicable for this client. kl Outcome: 20:38 Discharge ordered by . ec2 21:09 Discharged to home ambulatory, kl 21:09 Condition: stable 21:09 Discharge instructions given to patient, Instructed on discharge instructions, follow up and referral plans. medication usage, Demonstrated understanding of instructions, follow-up care, medications, Prescriptions given X 1, 21:09 Patient left the ED. kl Signatures: Asia Mosley RN RN Albert Trujillo, RN Velvet Culp RN RN [facility] Elis Jeffrey j6 Babar Roth MD MD ec2
--- NOTE | 2023-08-09 20:38 | EDPHYS ---
Physician Documentation [facility] Name: Zackery Patrick Age: 67 yrs Sex: Male : 1955 Arrival Date: 08/09/2023 Time: 19:52 Bed 5 Private MD: ED Physician Babar Roth HPI: 08/09 20:35 This 67 yrs old Black Male presents to ER via Ambulatory with complaints of TOE ec2 INFECTION. 20:35 Patient arrives today due to concern for left great toe infection. Patient reports for ec2 the past several days has been noticing pain and swelling in the left great toe. Patient reports no fevers or chills, no nausea or vomiting. Patient reports that he did notice some drainage from the toe. States that he has good mobility of the toe, no history of diabetes.. Historical: - Allergies: 19:59 No Known Allergies; lg3 - Home Meds: 19:59 unknown BP medication [Active]; unknown cholesterol medication [Active]; lg3 - PMHx: 19:59 Hyperlipidemia; Hypertension; lg3 - PSHx: 19:59 None; lg3 - Immunization history:: Adult Immunizations up to date, Client reports receiving the 2nd dose of the Covid vaccine, Flu vaccine is not up to date. - Social history:: Smoking status: Patient reports the use of cigarette tobacco products, smokes one pack cigarettes per day. Patient/guardian denies using alcohol, street drugs. ROS: 20:35 Constitutional: Toe swelling. ec2 Exam: 20:35 Constitutional: GEN: NAD Head: atraumatic Eyes: EOMI Ears: External ears are ec2 normal. CV: regular rate LUNGS: no respiratory distress ABD: non-distended SKIN: Left great toe with soft tissue swelling, good range of motion of the left great toe, no significant erythema or warmth. Discharge noted, clear/serosanguineous. No evidence of trauma. MSK: no evidence of trauma NEURO: moves all extremities equally Vital Signs: 19:57 BP 149 / 80; Pulse 69; Resp 17 S; Temp 98.8(O); Pulse Ox 97% on R/A; Weight 130.63 kg lg3 (R); Height 5 ft. 9 in. (R); Pain 7/10; 21:08 BP 127 / 73; Pulse 63; Resp 18; Pulse Ox 98% on R/A; kl 19:57 Body Mass Index 42.53 (130.63 kg, 175.26 cm) lg3 19:57 Pain Scale: Adult lg3 MDM: 20:06 Patient medically screened. ec2 20:35 Data reviewed: vital signs. ED course: Patient arrives today due to concern for left ec2 great toe swelling and discharge. Examination remarkable for skin findings as noted above. Examination is consistent with soft tissue infection. There is some swelling noted, on palpation I was able to excrete a significant amount of serosanguineous fluid without significant purulence appreciated. Ultimately patient with good range of motion and lack of systemic symptoms, clinical I have a low index of suspicion for osteomyelitis. Accordingly will defer lab work or radiograph at this time. Instructed, strict return precautions and if symptoms worsen to return for further work-up and testing. Patient discharged home, return precautions given.. Administered Medications: 20:24 CANCELLED (Physician Discretion): diazepam5 mg IVP once ec2 20:25 CANCELLED (Physician Discretion): aspirinchewable tablet 324 mg PO once; 81 mg tablets ec2 x 4 20:45 Drug: Doxycycline PO 100 mg PO once Route: PO; bp 21:05 Follow up: Response: No adverse reaction bp Disposition Summary: 08/09/23 20:38 Discharge Ordered Notes: Location: Home ec2 Condition: Stable ec2 Diagnosis - Cellulitis of left toe ec2 Discharge Instructions: - Discharge Summary Sheet ec2 - Cellulitis, Adult ec2 Forms: - Medication Reconciliation Form ec2 - Thank You Letter ec2 - Antibiotic Education ec2 - Prescription Opioid Use ec2 - Patient Portal Instructions ec2 - Leadership Thank You Letter ec2 Prescriptions: - Doxycycline Hyclate 100 mg Oral tablet - take 1 tablet ORAL route 2 times per day; 14 tablet; Refills: 0, Product ec2 Selection Permitted Signatures: Dispatcher [employer] Albert Leonard RN RN bp Velvet Drew RN RN 3 Babar Roth MD MD ec2 Corrections: (The following items were deleted from the chart) 20:24 20:24 Diazepam IVP 5 mg IVP once ordered. ec2 ec2 20:25 20:24 Aspirin PO Chewable Tablet 324 mg PO once; 81 mg tablets x 4 ordered. ec2 ec2 20:25 20:24 Cardiac monitoring ordered. ec2 ec2 20:25 20:24 EKG - Nurse/Tech ordered. ec2 ec2 20:25 20:24 IV Saline Lock ordered. ec2 ec2 20:25 20:24 Labs collected and sent ordered. ec2 ec2 20:25 20:24 Oxygen Per Protocol ordered. ec2 ec2 20:25 20:24 O2 Sat Monitoring ordered. ec2 ec2
--- OUTSIDE RECORDS SUMMARY | 2023-08-09 21:01 | XMS REPORT | Continuity of Care Document ---
:1955 Author Organization [facility] t Address [address] [place] [address] Care Team Providers Name Role Phone Unavailable [...] Clinicians Facility Department ID 2022-12-27 2022-12-27 Outpatient [facility] [id number] Martin 10:28:58 10:28:58 [id number] F Pedro 2022-12-25 2022-12-25 Outpatient [facility] [id number] [place] 10:50:37 10:50:37 [id number] [facility] Results Test Description Test Time Test Comments Results Result Comments Source CT/NG, NAAT, URINE 2022-12-26 20:23:55 Test Item Value Reference Range Interpretation Comme nts CHLAMYDIA, NAAT, URINE (test NEGATIVE NEGATIVE Testing is performed with Jesus code = 46983) MARTHA [employer]0/880 0 systems usingreal-time polymerase chain reaction (PCR) method. A negative result does not exclude low level infection, spec imensampling error, or collection e rror. GONORRHEA, NAAT, URINE (test NEGATIVE NEGATIVE Testing is performed with Jesus code = 41405) MARTHA 6800/880 0 systems usingreal-time polymerase chain reaction (PCR) method. A negative result does not exclude low level infection, spec imensampling error, or collection e rror. HERPES SIMPLEX [id number] 14:23:53 Test Item Value Reference Range Interpretation Comments HERPES SIMPLEX IgM 0.59 INDEX SEE BELOW INTERPRE TATION UNITS (test code = RANGE --------- ----- 43826) ----- ----- NEG ATIVE INDEX <=0.89 EQ UIVOCAL INDEX 0.90-1.09 POSITIVE INDEX >=1.10 [id number] 04:20:56 Test Item Value Reference Range Interpretation Comments RPR RESULT (test code = NON-REACTIVE NON-REACTIVE 3501) RPR TITER (test code = 3500) NOT INDIC. TITER NOT INDIC. HIV 1/2 4TH GEN, RFLX [id number] 04:17:35 Test Item Value Reference Range Interpretation Comments HIV 1/2 4TH GEN, RFLX CONF (test NON-REACTIVE NON-REACTIVE code = 3514) HEPATITIS PANEL, [id number] 04:17:35 Test Item Value Reference Range Interpretation Comments HEPATITIS A IgM (test NON-REACTIVE NON-REACTIVE code = 22259) HEPATITIS B CORE IgM NON-REACTIVE NON-REACTIVE (test code = 4644) HEPATITIS B SURF AG NON-REACTIVE NON-REACTIVE (test code = 2739) HEPATITIS C ANTIBODY NON-REACTIVE NON-REACTIVE (test code = 4675) INTERPRETATION (NOTE) Hepatitis A HEPATITIS A: (test code sero logy shows no = 2552) evidence of acu te hepatitis A. INTERPRETATION (NOTE) Hepatitis B HEPATITIS B: (test code sero logy shows no = 58802) evidence of acu te hepatitis B and no indication of exposure to hepatitis B vir us in the previous isreal eight months. INTERPRETATION (NOTE) Hepatitis C HEPATITIS C: (test code sero logy shows no = 76620) evidence of exposure to hepatitisC viru s at this time. I t can take up to 12 months after exposure tothe hepatitis C vir us for antibodies to become detectab le in the blood in certain patient s. HERPES SIMPLEX 1/2 [id number] 04:17:35 Test Item Value Reference Range Interpretation Comments HERPES SIMPLEX 1 105.000 INDEX SEE BELOW H INTERPRET ATION UNITS IgG (test code = RANGE ----- --------- 70588) ----- ----- NON-REACTIVE IN DEX <1.000 REACTIVE INDEX >=1.000 HERPES SIMPLEX 2 0.070 INDEX SEE BELOW INTERPRETA TION UNITS IgG (test code = RANGE ----- --------- 95037) ----- ----- NON-REACTIVE IN DEX <1.000 REACTIVE INDEX >=1.000 [facility] has important patho logy staff changes e ffective 12/20/2022. New pathology staff will provide uninter rupted, excellent patie nt care and clinical consultation. S ee URL: [email or web address]. UNLESS OTHERWISE INDIC ATED, ALL [facility] PER [facility] AT [facility]Going [facility], [facility]. [address] [place] [address] LABORATOR Y DIRECTOR: Jessie RODRIGUEZ LETY NUMBER [id number] CAP ACCREDITATION N O. [id number]
[2023-08-09] MEDS ORDERED: DOXYCYCLINE 100 MG CAP PO ONE (21:06)
[2023-08-09 21:25] VITALS: TEMP 98.8
[2023-08-09 21:27] VITALS: BP 127/73; O2SAT 98
== END 2023-08-09 21:09 | disposition home or self-care (01) ==
LOC: ER 19:52
DX: L03.032 Cellulitis of left toe (principal)
CPT/HCPCS: 99283

== ENCOUNTER 2024-10-09 08:06 | Emergency (ER) | payer BC ==
--- OUTSIDE RECORDS SUMMARY | 2024-10-09 08:08 | XMS REPORT | Continuity of Care Document ---
Author Name Unknown Address [address] [facility] [address] [place] [address] [facility] thconnect Address [address] [facility] [address] [place] [address] Care Team Providers Care Draw Frame Tender Name Role Phone Unavailable Unavailable Unavailable Encounters Start Date/Time End Date/Time Encounter Type Admission Type Attending Clinicians Care Facility Care Department Encounter ID Source 2022-12-27 10:28:58 2022-12-27 10:28:58 Outpatient [facility] [id number] Martin Vasquez 2022-12-25 10:50:37 2022-12-25 10:50:37 Outpatient [facility] [id number] Martin Vasquez Results Test Description Test Time Test Comments Results Result Co mments Source HERPES SIMPLEX [id number] 14:23:53* Test Item Value Reference Range Interpretation Comme nts HERPES SIMPLEX IgM (test code = 60230) 0.59 INDEX SEE BELOW INTERPRETATION U NITS RANGE ----- ----- NEGATIVE INDEX <=0.89 EQUIVOCAL INDEX 0.90-1.09 POSITIVE INDEX >=1.10 [id number] 04:20:56* Test Item Value Reference Range Interpretation Comme nts RPR RESULT (test code = 3501) NON-REACTIVE NON-REACTIVE RPR TITER (test code = 3500) NOT INDIC. TITER NOT INDIC. HIV 1/2 4TH GEN, RFLX [id number] 04:17:35* Test Item Value Reference Range Interpretation Comme nts HIV 1/2 4TH GEN, RFLX CONF ( test code = 3514) NON-REACTIVE NON-REACTIVE HEPATITIS PANEL, [id number] 04:17:35* Test Item Value Reference Range Interpretation Comme nts HEPATITIS A IgM (test code = 45285) NON-REACTIVE NON-REACTIVE HEPATITIS B CORE IgM (test code = 4644) NON-REACTIVE NON-REACTIVE HEPATITIS B SURF AG (test code = 2739) NON-REACTIVE NON-REACTIVE HEPATITIS C ANTIBODY (test code = 4675) NON-REACTIVE NON-REACTIVE INTERPRETATION HEPATITIS A: (test code = 2552) (NOTE) Hepatitis A serology shows no evidence of acute hepatitis A. INTERPRETATION HEPATITIS B: (test code = 00015) (NOTE) Hepatitis B serology shows no evidence of acute hepatitis B andno indication of exposure to hepatitis B virus in the previous isreal eight months. INTERPRETATION HEPATITIS C: (test code = 66302) (NOTE) Hepatitis C serology shows no evidence of exposure to hepatitisC virus at this time. It can take up to 12 months after exposure tothe hepatitis C virus for antibodies to become detectable in the blood in certain patients. HERPES SIMPLEX 1/2 [id number] 04:17:35* Test Item Value Reference Range Interpretation Comme nts HERPES SIMPLEX 1 IgG (test code = 57853) 105.000 INDEX SEE BELOW H INTERPRETATION UNITS RANGE ----- ----- NON-REACTIVE INDEX <1.000 REACTIVE INDEX >=1.000 HERPES SIMPLEX 2 IgG (test code = 76815) 0.070 INDEX SEE BELOW INTERPRETATION U NITS RANGE ----- ----- NON-REACTIVE INDEX <1.000 REACTIVE INDEX >=1.000 [facility] has important pathology staff changes effective 12/20/2022. New pathology staff will provide uninterrupted, excellent patient care and clinical consultation. See URL: [email or web address]. UNLESS OTHERWISE INDICATED, ALL TESTING PERFORMED AT [facility] [address] [place] [address] SECURITY FLEX OFFICER: HERVE VILLASEÑOR M.D. JERE NUMBER [id number] [place]. [id number]
[2024-10-09] MEDS ORDERED: ONDANSETRON 4 MG/2 ML VIAL ONE (08:30)
[2024-10-09] MEDS ORDERED: NA CHLORIDE 0.9% 500 ML ONE (08:30)
--- NOTE | 2024-10-09 08:51 | RAD REPORT ---
EXAMINATION: ONE VIEW CHEST XR CLINICAL INDICATION: COUGH TECHNIQUE: Frontal chest projection is submitted. Examination is limited by patient positioning and t echnique. COMPARISON: 09/16/2019 FINDINGS: Right-sided aortic arch is suspected. Interstitial markings are prominent bilaterally which could ind icate a viral infection or interstitial pulmonary edema. No focal consolidation developing pneumonia is seen. Mild left midlung pleural-parenchymal scarring bilaterally, unchanged.. The heart is upper limit of normal in size. No displaced fractures identified.
[2024-10-09 08:53] LABS: Absolute Eosinophils 0.2 K/uL (0-0.5); Absolute Lymphocytes (CBC) 2.1 K/uL (0.7-4.9); Absolute Monocytes 0.6 K/uL (0.1-1.3); Absolute Neutrophil 2.5 K/uL (1.8-8.0); Basophils % 0.5 % (0-1.3); Eosinophils % 2.9 % (0-4.4); Hematocrit 40.1 % (39.6-49.0); Lymphocytes % 39.5 % (15.3-44.8); MCH 30.4 pg (27.0-35.0); MCHC 32.6 g/dL (32.0-36.0); MCV 93.3 fL (80-100); MPV 8.4 fL (7.6-11.3); Monocytes % 10.5 % (3.3-12.3); Neutrophils % 46.6 % (41.7-73.7); Nucleated Red Blood Cells % 0.3 % (0-0); Platelets 264 thou/uL (152-406); RBC Red Blood Cell Count 4.29 M/uL (4.33-5.43)
[2024-10-09 09:02] LABS: SARS-CoV-2 Antigen CONTROL BLUE LINE VIS/BG OK; SARS-CoV-2 Antigen Rapid Res Negative (Negative)
[2024-10-09 09:28] LABS: Anion Gap 5.7 mEq/L (5.0-15.0); Potassium 3.7 mEq/L (3.5-5.1)
--- NOTE | 2024-10-09 09:35 | EDPHYS ---
Physician Documentation [facility] Name: Zackery Patrick Age: 69 yrs Sex: Male : 1955 Arrival Date: 10/09/2024 Time: 08:06 Bed 14 Private MD: ED Physician Babar Roth HPI: 10/09 08:50 This 69 yrs old Black Male presents to ER via Ambulatory with complaints of Cough, ec2 Chest Congestion. 08:50 Patient arrives today for evaluation of cough and cold symptoms ongoing for 1 week. ec2 Patient reports otherwise has been eating and drinking without issue, no significant shortness of breath. Patient reports he is a pack per day smoker. Reports no history of COPD. No breathing treatments at home. Patient reports otherwise no fevers. Historical: - Allergies: 08:24 No Known Allergies; hb - Home Meds: 08:24 Lisinopril Oral [Active]; atorvastatin oral [Active]; hb - PMHx: 08:24 Hyperlipidemia; Hypertension; hb - PSHx: 08:24 None; hb - Immunization history:: Adult Immunizations up to date. - Infectious Disease History:: Denies. - Social history:: Smoking status: Patient reports the use of cigarette tobacco products, smokes one pack cigarettes per day. ROS: 08:50 Constitutional: as per hpi ec2 Exam: 08:50 Constitutional: GEN: NAD Head: atraumatic Eyes: EOMI Ears: External ears are ec2 normal. CV: regular rate LUNGS: no respiratory distress, no wheezes or rales or rhonchi ABD: non-distended SKIN: no evidence of rashes MSK: no evidence of trauma Vital Signs: 08:23 BP 180 / 91; Pulse 58; Resp 18; Temp 98.2(O); Pulse Ox 98% on R/A; Weight 131.09 kg; hb Height 5 ft. 9 in. ; Pain 7/10; 08:50 BP 168 / 80; Pulse 55; Resp 16; Pulse Ox 99% on R/A; ko1 08:23 Body Mass Index 42.68 (131.09 kg, 175.26 cm) hb 08:23 Pain Scale: Adult hb MDM: 08:24 Medical Screening Exam initiated ec2 08:50 Data reviewed: vital signs, nurses notes. ED course: Patient arrives today for upper ec2 respiratory symptoms. Examination is revealing for hemodynamically stable individuals otherwise in no acute distress with a reassuring cardiopulmonary examination. Will obtain lab work, viral swabs, chest x-ray. Differential diagnosis include processes such as viral infection, pneumonia, volume overload.. 09:34 ED course: BMP with minimal elevation, chest x-ray without significant volume ec2 appreciated. Viral swabs are negative. Lab work otherwise unrevealing. On reassessment patient remains well-appearing no acute distress, suspect viral infection. Will discharge home. Return precautions given.. 10/09 08:25 Order name: Basic Metabolic Panel; Complete Time: 09:33 ec2 10/09 08:25 Order name: CBC with Diff; Complete Time: 09:00 ec2 10/09 08:25 Order name: NT PRO-BNP; Complete Time: 09:33 ec2 10/09 08:25 Order name: Influenza Screen (a \T\ B); Complete Time: 09:16 ec2 10/09 08:25 Order name: SARS RAPID; Complete Time: 09:16 ec2 10/09 08:25 Order name: XRAY Chest (1 view); Complete Time: 09:00 ec2 10/09 08:25 Order name: Cardiac monitoring; Complete Time: 08:26 ec2 10/09 08:25 Order name: IV Saline Lock; Complete Time: 08:48 ec2 10/09 08:25 Order name: Labs collected and sent; Complete Time: 08:56 ec2 10/09 08:25 Order name: O2 Per Protocol; Complete Time: 08:26 ec2 10/09 08:25 Order name: O2 Sat Monitoring; Complete Time: 08:26 ec2 Administered Medications: 08:56 Drug: NS 0.9% IV 500 ml 500 ml IV at 1 bolus once; to be given as a bolus over 30 ko1 minutes Volume: 500 ml; Route: IV; Rate: 1 bolus; Site: left antecubital; 09:45 Follow up: Response: No adverse reaction; IV Status: Completed infusion; IV Intake: ko1 500ml 08:56 Drug: Ondansetron IVP 4 mg IVP once; over 2 minutes Route: IVP; Site: left antecubital; ko1 09:11 Follow up: Response: No adverse reaction ko1 Disposition Summary: 10/09/24 09:34 Discharge Ordered Notes: Location: Home ec2 Condition: Fair ec2 Diagnosis - Viral infection, unspecified ec2 Followup: ec2 - With: Private Physician - When: - Reason: Re-evaluation by your physician Discharge Instructions: - Discharge Summary Sheet ec2 - Viral Illness, Adult ec2 Forms: - Medication Reconciliation Form ec2 - Antibiotic Education ec2 - Prescription Opioid Use ec2 - Patient Portal Instructions ec2 - Leadership Thank You Letter ec2 Prescriptions: - albuterol sulfate 90 mcg/actuation Inhalation HFA Aerosol Inhaler - inhale 2 inhalation INHALATION route every 4 to 6 hours as needed for ec2 bronchospasm; administer via ventilator; 1 unit; Refills: 0, Product Selection Permitted Signatures: Dispatcher [employer] Blanche Maldonado RN RN hb Oliver, Kathy, RN RN [facility] Babar Roth MD MD ec2
--- NOTE | 2024-10-09 09:35 | ER ---
Nurse's Notes [facility] Name: Zackery Patrick Age: 69 yrs Sex: Male : 1955 Arrival Date: 10/09/2024 Time: 08:06 Bed 14 Private MD: Diagnosis: Viral infection, unspecified Presentation: 10/09 08:23 Chief complaint: Cough, congestion, and headache x 1 week. Coronavirus screen: Client hb presents with at least one sign or symptom that may indicate coronavirus-19. Provider contacted for isolation considerations. Ebola Screen: No symptoms or risks identified at this time. Initial Sepsis Screen: Does the patient meet any 2 criteria? No. Patient's initial sepsis screen is negative. Does the patient have a suspected source of infection? No. Patient's initial sepsis screen is negative. Risk Assessment: Do you want to hurt yourself or someone else? Patient reports no desire to harm self or others. Onset of symptoms was October 02, 2024. 08:23 Method Of Arrival: Ambulatory hb 08:23 Acuity: AL 3 hb Historical: - Allergies: 08:24 No Known Allergies; hb - Home Meds: 08:24 Lisinopril Oral [Active]; atorvastatin oral [Active]; hb - PMHx: 08:24 Hyperlipidemia; Hypertension; hb - PSHx: 08:24 None; hb - Immunization history:: Adult Immunizations up to date. - Infectious Disease History:: Denies. - Social history:: Smoking status: Patient reports the use of cigarette tobacco products, smokes one pack cigarettes per day. Screenin:50 [facility] ED Fall Risk Assessment (Adult) History of falling in the last 3 months, ko1 including since admission No falls in past 3 months (0 pts) Confusion or Disorientation No (0 pts) Intoxicated or Sedated No (0 pts) Impaired Gait No (0 pts) Mobility Assist Device Used No (0 pt) Altered Elimination No (0 pt) Score/Fall Risk Level 0 - 2 = Low Risk Oriented to surroundings, Maintained a safe environment, Educated pt \T\ family on fall prevention, incl call for assistance when getting out of bed, Assessed \T\ reinforced patient's understanding of fall precautions, Hourly rounding (assess needs \T\ fall precautionary measures) done. Abuse screen: Denies threats or abuse. Denies injuries from another. Nutritional screening: No deficits noted. Tuberculosis screening: No symptoms or risk factors identified. Assessment: 08:50 General: Appears in no apparent distress. Behavior is calm, cooperative, appropriate ko1 for age. Pain: Denies pain. Neuro: No deficits noted. Cardiovascular: No deficits noted. Reports None. Respiratory: Reports cough that is non-productive, persistent. GI: No deficits noted. : No deficits noted. EENT: No deficits noted. Derm: No deficits noted. Musculoskeletal: No deficits noted. Vital Signs: 08:23 BP 180 / 91; Pulse 58; Resp 18; Temp 98.2(O); Pulse Ox 98% on R/A; Weight 131.09 kg; hb Height 5 ft. 9 in. ; Pain 7/10; 08:50 BP 168 / 80; Pulse 55; Resp 16; Pulse Ox 99% on R/A; ko1 08:23 Body Mass Index 42.68 (131.09 kg, 175.26 cm) hb 08:23 Pain Scale: Adult hb ED Course: 08:10 Patient arrived in ED. im 08:20 Babar Roth MD is Attending Physician. ec2 08:23 Dipti Avila, MARTHA is Primary Nurse. ko1 08:24 Triage completed. hb 08:25 Arm band placed on. hb 08:41 XRAY Chest (1 view) In Process Unspecified. EDMS 08:50 Patient has correct armband on for positive identification. Bed in low position. Call ko1 light in reach. Side rails up X 1. Provided Education on: labs. Pulse ox on. NIBP on. Door closed. Noise minimized. Lights dimmed. Warm blanket given. Pillow given. 08:50 No provider procedures requiring assistance completed. Initial lab(s) drawn, by ED ko1 staff, sent to lab. COVID swab sent to lab. Flu and/or RSV swab sent to lab. 08:53 SARS RAPID Sent. nh2 08:53 Influenza Screen (a \T\ B) Sent. nh2 08:53 Basic Metabolic Panel Sent. nh2 08:53 CBC with Diff Sent. nh2 08:53 NT PRO-BNP Sent. nh2 08:53 Inserted saline lock: 22 gauge in left antecubital area, using aseptic technique. Blood nh2 collected. Flushed with 10 mL NS. 09:51 IV discontinued, intact, bleeding controlled, No redness/swelling at site. Pressure ko1 dressing applied. Administered Medications: 08:56 Drug: NS 0.9% IV 500 ml 500 ml IV at 1 bolus once; to be given as a bolus over 30 ko1 minutes Volume: 500 ml; Route: IV; Rate: 1 bolus; Site: left antecubital; 09:45 Follow up: Response: No adverse reaction; IV Status: Completed infusion; IV Intake: ko1 500ml 08:56 Drug: Ondansetron IVP 4 mg IVP once; over 2 minutes Route: IVP; Site: left antecubital; ko1 09:11 Follow up: Response: No adverse reaction ko1 Medication: 08:50 VIS not applicable for this client. ko1 Intake: 09:45 IV: 500ml; Total: 500ml. ko1 Outcome: 09:34 Discharge ordered by . ec2 09:51 Discharged to home ambulatory, ko1 09:51 Condition: stable 09:51 Discharge instructions given to patient, Instructed on discharge instructions, follow up and referral plans. medication usage, Demonstrated understanding of instructions, follow-up care, medications, Prescriptions given X 1, 09:51 Patient left the ED. ko1 Signatures: Dispatcher [employer] EDBlanche Aguayo RN RN hb Oliver, Kathy, RN RN ko1 Emily Hobbs Edwin, MD MD ec2 Aden Daily Jrl nh2
[2024-10-09 10:09] VITALS: TEMP 98.2
[2024-10-09 10:15] VITALS: BP 168/80; O2SAT 99
== END 2024-10-09 09:51 | disposition home or self-care (01) ==
LOC: ER 08:06
DX: B34.9 Viral infection, unspecified (principal); F17.210 Nicotine dependence, cigarettes, uncomplicated; E78.5 Hyperlipidemia, unspecified; I10 Essential (primary) hypertension; Z11.52 Encounter for screening for COVID-19
CPT/HCPCS: 96361; 85025; 80048; 36415; 83880; 87804 ×2; 71045; 96374; 99284; 87811; J2405; J7040

== ENCOUNTER 2025-01-29 19:05 | Emergency (ER) | payer BC ==
--- OUTSIDE RECORDS SUMMARY | 2025-01-29 19:07 | XMS REPORT | Continuity of Care Document ---
Author Name Unknown Address [address] [facility] [address] [place] [address] [facility] Address [address] [facility] [address] [place] [address] Care Team Providers Care Washer Hand Name Role Phone Unavailable Unavailable Unavailable Encounters Start Date/Time End Date/Time Encounter Type Admission Type Attending Clinicians Care Facility Care Department Encounter ID Source 2022-12-27 10:28:58 2022-12-27 10:28:58 Outpatient [facility] [id number] Martin Vasquez 2022-12-25 10:50:37 2022-12-25 10:50:37 Outpatient [facility] [id number] Martin Vasquez Results Test Description Test Time Test Comments Results Result Co mments Source HERPES SIMPLEX [id number] 14:23:53* Test Item Value Reference Range Interpretation Comme nts HERPES SIMPLEX IgM (test code = 29481) 0.59 INDEX SEE BELOW INTERPRETATION U NITS RANGE ----- ----- NEGATIVE INDEX <=0.89 EQUIVOCAL INDEX 0.90-1.09 POSITIVE INDEX >=1.10 [id number] 04:20:56* Test Item Value Reference Range Interpretation Comme nts RPR RESULT (test code = 3501) NON-REACTIVE NON-REACTIVE RPR TITER (test code = 3500) NOT INDIC. TITER NOT INDIC. HIV 1/2 4TH GEN, RFLX [id number] 04:17:35* Test Item Value Reference Range Interpretation Comme nts HIV 1/2 4TH GEN, RFLX CONF ( test code = 3514) NON-REACTIVE NON-REACTIVE HEPATITIS PANEL, [id number] 04:17:35* Test Item Value Reference Range Interpretation Comme nts HEPATITIS A IgM (test code = 05780) NON-REACTIVE NON-REACTIVE HEPATITIS B CORE IgM (test code = 4644) NON-REACTIVE NON-REACTIVE HEPATITIS B SURF AG (test code = 2739) NON-REACTIVE NON-REACTIVE HEPATITIS C ANTIBODY (test code = 4675) NON-REACTIVE NON-REACTIVE INTERPRETATION HEPATITIS A: (test code = 2552) (NOTE) Hepatitis A serology shows no evidence of acute hepatitis A. INTERPRETATION HEPATITIS B: (test code = 95913) (NOTE) Hepatitis B serology shows no evidence of acute hepatitis B andno indication of exposure to hepatitis B virus in the previous isreal eight months. INTERPRETATION HEPATITIS C: (test code = 24286) (NOTE) Hepatitis C serology shows no evidence of exposure to hepatitisC virus at this time. It can take up to 12 months after exposure tothe hepatitis C virus for antibodies to become detectable in the blood in certain patients. HERPES SIMPLEX 1/2 [id number] 04:17:35* Test Item Value Reference Range Interpretation Comme nts HERPES SIMPLEX 1 IgG (test code = 87603) 105.000 INDEX SEE BELOW H INTERPRETATION U NITS RANGE ----- ----- NON-REACTIVE INDEX <1.000 REACTIVE INDEX >=1.000 HERPES SIMPLEX 2 IgG (test code = 30854) 0.070 INDEX SEE BELOW INTERPRETATION U NITS RANGE ----- ----- NON-REACTIVE INDEX <1.000 REACTIVE INDEX >=1.000 [facility] has important pathology staff changes effective 12/20/2022. New pathology staff will provide uninterrupted, excellent patient care and clinical consultation. See URL: [email or web address]. UNLESS OTHERWISE INDICATED, ALL TESTING PERFORMED AT [facility] [address] [place] [id number] MOTORBOAT MECHANIC INBOARD/OUTBOARD: HERVE VILLASEÑOR M.D. JERE NUMBER [id number] [place]. [id number]
[2025-01-29] MEDS ORDERED: ASPIRIN 81 MG CHEWABLE TABLET ONE (19:24)
[2025-01-29] MEDS ORDERED: ADENOSINE 6 MG/ 2ML VIAL IV ONE (19:26)
[2025-01-29] MEDS ORDERED: NA CHLORIDE 0.9% 1,000 ML ONE (19:30)
[2025-01-29 19:42] LABS: Absolute Eosinophils 0.2 K/uL (0-0.5); Absolute Lymphocytes (CBC) 1.5 K/uL (0.7-4.9); Absolute Neutrophil 2.1 K/uL (1.8-8.0); Basophils % 0.8 % (0-1.3); Eosinophils % 3.7 % (0-4.4); Hematocrit 40.7 % (39.6-49.0); Hemoglobin 13.9 g/dL (13.6-17.9); MCH 30.7 pg (27.0-35.0); MCHC 34.2 g/dL (32.0-36.0); MCV 89.8 fL (80-100); MPV 8.5 fL (7.6-11.3); Monocytes % 20.2 % (3.3-12.3); Neutrophils % 44.3 % (41.7-73.7); Nucleated Red Blood Cells % 0.2 % (0-0); Platelets 200 thou/uL (152-406); RBC Red Blood Cell Count 4.53 M/uL (4.33-5.43); Red Cell Distribution Width 13.9 % (12.1-15.2)
[2025-01-29 19:50] LABS: PT Prothrombin Time 12.6 SECONDS (10-13.0); Protime INR 1.11
[2025-01-29 20:01] LABS: Anion Gap 8.3 mEq/L (5.0-15.0); Magnesium 1.9 mg/dL (1.6-2.4); Potassium 3.3 mEq/L (3.5-5.1); Troponin High Sensitivity 7.4 pg/mL (<58.9)
--- NOTE | 2025-01-29 20:53 | RAD REPORT ---
EXAMINATION: ONE VIEW CHEST XR CLINICAL INDICATION: Male, 69 years old.,CHEST PAIN TECHNIQUE: Frontal chest projection is submitted. Examination is limited by patient positioning and t echnique. COMPARISON: 10/09/2024 FINDINGS: Crescentic left midlung opacity, stable. Right lung is clear. No pneumothorax or sizable effusion. T he heart is normal in size. Mediastinal contours are unremarkable. IMPRESSION: Stable findings as above.
--- NOTE | 2025-01-29 21:04 | EDPHYS ---
Physician Documentation [facility] Name: Zackery Patrick Age: 69 yrs Sex: Male : 1955 Arrival Date: 01/29/2025 Time: 19:05 Bed 4 Private MD: ED Physician Sal Reyes HPI: 01/29 21:06 This 69 yrs old Black Male presents to ER via Ambulatory with complaints of Chest Pain. ms3 21:06 69-year-old male with past medical history of hypertension, hyperlipidemia [place] [facility] [place] for chest pain that began 3 hours prior to arrival. Patient states pain is an 8/10 and feels like pressure. He denies any alleviating or inciting factors.. Historical: - Allergies: 19:20 No Known Allergies; lg3 - PMHx: 19:20 Hyperlipidemia; Hypertension; lg3 - PSHx: 19:20 None; lg3 - Immunization history:: Adult Immunizations up to date. - Infectious Disease History:: Denies. - Social history:: Smoking status: Patient reports the use of cigarette tobacco products, smokes one pack cigarettes per day. Patient/guardian denies using alcohol, street drugs. ROS: 21:06 Constitutional: Negative for fever, and chills. ms3 21:06 Abdomen/GI: Negative for abdominal pain, nausea, vomiting, diarrhea, and constipation, MS/Extremity: Negative for injury and deformity, Skin: Negative for injury, rash, and discoloration, Neuro: Negative for headache, weakness, numbness, tingling. 21:06 Cardiovascular: Positive for chest pain, Exam: 21:06 Constitutional: This is a well developed, well nourished patient who is awake, alert, ms3 and in no acute distress. Respiratory: Lungs have equal breath sounds bilaterally, clear to auscultation and percussion. No rales, rhonchi or wheezes noted. No increased work of breathing, no retractions or nasal flaring. Abdomen/GI: Soft, non-tender, with normal bowel sounds. No distension or tympany. No guarding or rebound. No evidence of tenderness throughout. Skin: Warm, dry with normal turgor. Normal color with no rashes, no lesions, and no evidence of cellulitis. MS/ Extremity: Pulses equal, no cyanosis. Neurovascular intact. Full, normal range of motion. 21:06 Cardiovascular: Rate: tachycardic, Rhythm: regular, Pulses: no pulse deficits are appreciated, Heart sounds: normal, Edema: is not appreciated, JVD: is not appreciated, 21:06 ECG was reviewed by the Attending Physician. 21:06 ECG was reviewed by the Attending Physician. ms3 Vital Signs: 19:24 BP 120 / 92; Pulse 146; Resp 18; Temp 98.6(O); Pulse Ox 97% on R/A; Weight 129.73 kg; cm10 Height 5 ft. 9 in. ; Pain 9/10; 19:37 Pulse 90; Resp 18; Pulse Ox 99% ; cm10 20:30 BP 131 / 81; Pulse 88; Resp 15; Pulse Ox 94% ; cm10 21:14 BP 132 / 79; Pulse 80; Resp 18; Temp 98.6; Pulse Ox 95% ; Pain 0/10; bm8 19:24 Body Mass Index 42.23 (129.73 kg, 175.26 cm) cm10 19:24 Pain Scale: Adult cm10 21:14 Pain Scale: Adult bm8 [place] Coma Score: 21:14 Eye Response: spontaneous(4). Motor Response: obeys commands(6). Verbal Response: bm8 oriented(5). Total: 15. MDM: 19:34 Medical Screening Exam initiated ms3 21:04 Differential diagnosis: abnormal EKG, acute myocardial infarction, coronary artery ms3 disease chest wall pain, SVT. The patient was given aspirin in the Emergency Department. Data reviewed: vital signs, nurses notes, lab test result(s), EKG, radiologic studies, and as a result, I will discharge patient. Consideration of Admission/Observation Escalation of care including admission/observation considered. Patient refused observation.. I considered the following discharge prescriptions or medication management in the emergency department Medications were administered in the Emergency Department. See MAR. Independent interpretation of the following test(s) in the Emergency Department EKG: See my EKG interpretation above. Counseling: I had a detailed discussion with the patient and/or guardian regarding the historical points, exam findings, and any diagnostic results supporting the discharge/admit diagnosis, lab results, radiology results, the need for further work-up and treatment in the hospital. ED course: Patient has decided to refuse hospital observation. At this time, I reevaluated the patient and discussed the following: a. Capacity: The patient has the capacity to communicate, understand information, and logically process the decision making process. b. Communication of risks: At bedside, I discussed potential risks, outcomes, and alternative approaches in a patientcentered manner. The patient was informed of the specific risks of heart failure, arrhythmia, disability, including worsening condition and . The patient understands that they are welcome to return at any time to complete the workup. Patient is discharged from my care with informed refusal.. 01/29 19:10 Order name: Basic Metabolic Panel; Complete Time: 20:25 ms3 01/29 19:10 Order name: CBC with Diff; Complete Time: 20:25 ms3 01/29 19:10 Order name: Magnesium; Complete Time: 20:25 ms3 01/29 19:10 Order name: PT-INR; Complete Time: 20:25 ms3 01/29 19:10 Order name: Troponin HS; Complete Time: 20:25 ms3 01/29 19:10 Order name: XRAY Chest (1 view); Complete Time: 20:55 ms3 01/29 19:10 Order name: Cardiac monitoring; Complete Time: 19:36 ms3 01/29 19:10 Order name: EKG - Nurse/Tech; Complete Time: 19:36 ms3 01/29 19:10 Order name: IV Saline Lock; Complete Time: 19:36 ms3 01/29 19:10 Order name: Labs collected and sent; Complete Time: 19:36 ms3 01/29 19:10 Order name: O2 Per Protocol; Complete Time: 19:36 ms3 01/29 19:10 Order name: O2 Sat Monitoring; Complete Time: 19:36 ms3 EC:06 Rate is 146 beats/min. Rhythm is regular. QRS [place] is Normal. PA interval is normal. ms3 QRS interval is normal. Clinical impression: SVT. Interpreted by me. Reviewed by me. 21:06 Rate is 104 beats/min. Rhythm is regular. QRS [place] is Normal. PA interval is normal. ms3 QRS interval is normal. Clinical impression: NSR w/ Non-specific ST/T Changes and Sinus tachycardia. Interpreted by me. Reviewed by me. Administered Medications: 19:30 Drug: Adenocard IVP 6 mg IVP once Route: IVP; Site: left wrist; cm10 19:31 Follow up: Response: No adverse reaction; No change in condition; Cardiac rhythm is cm10 unchanged 19:32 Drug: Adenocard IVP 12 mg IVP once Route: IVP; Site: left wrist; cm10 19:34 Follow up: Response: No adverse reaction; Marked relief of symptoms; Cardiac rhythm cm10 changed 19:36 Drug: Aspirin PO Chewable Tablet 324 mg PO once; 81 mg tablets x 4 Route: PO; cm10 21:15 Follow up: Response: No adverse reaction bm8 Disposition: 21:04 Critical Care:. ms3 Disposition Summary: 01/29/25 21:03 Discharge Ordered Notes: Location: Home ms3 Condition: Stable ms3 Diagnosis - Supraventricular tachycardia ms3 Followup: ms3 - With: Ming Self MD - When: 1 - 2 days - Reason: Recheck today's complaints Discharge Instructions: - Discharge Summary Sheet ms3 - Supraventricular Tachycardia, Adult, [id number] ms3 Forms: - Medication Reconciliation Form ms3 - Antibiotic Education ms3 - Prescription Opioid Use ms3 - Patient Portal Instructions ms3 - Leadership Thank You Letter ms3 Critical care time excluding procedures: 21:04 Critical care time: Bedside Care: 45 minutes, Consultation: 5 minutes. Total time: 50 ms3 minutes Signatures: Dispatcher [employer] EDVelvet Argueta RN RN lg3 Sal Reyes DO DO ms3 Nery Cobb RN RN cm10 Bernard King RN bm8
--- NOTE | 2025-01-29 21:04 | ER ---
Nurse's Notes [facility] Name: Zackery Patrick Age: 69 yrs Sex: Male : 1955 Arrival Date: 01/29/2025 Time: 19:05 Bed 4 Private MD: Diagnosis: Supraventricular tachycardia Presentation: 01/29 19:20 Chief complaint: Patient states: CP X3 hr. Coronavirus screen: Client denies travel out lg3 of the [place] in the last 14 days. At this time, the client does not indicate any symptoms associated with coronavirus-19. Ebola Screen: No symptoms or risks identified at this time. Risk Assessment: Do you want to hurt yourself or someone else? Patient reports no desire to harm self or others. Onset of symptoms was January 29, 2025. 19:20 Method Of Arrival: Ambulatory lg3 19:20 Acuity: AL 3 lg3 21:16 Initial Sepsis Screen: Does the patient meet any 2 criteria? No. Patient's initial bm8 sepsis screen is negative. Does the patient have a suspected source of infection? No. Patient's initial sepsis screen is negative. Triage Assessment: 19:20 General: Appears in no apparent distress. comfortable, Behavior is calm, cooperative. lg3 Pain: Complains of pain in chest Pain currently is 9 out of 10 on a pain scale. EENT: No deficits noted. No signs and/or symptoms were reported regarding the EENT system. Neuro: No deficits noted. [place] Agitation-Sedation Scale (RASS): 0 - Alert and Calm Level of Consciousness is awake, alert, obeys commands, Oriented to person, place, time, situation. Cardiovascular: Reports chest pain, Capillary refill < 3 seconds Clubbing of nail beds is absent JVD is absent Patient's skin is warm and dry. Respiratory: No deficits noted. Airway is patent Respiratory effort is even, unlabored, Respiratory pattern is regular, symmetrical. GI: No deficits noted. No signs and/or symptoms were reported involving the gastrointestinal system. Abdomen is round non-distended. : No signs and/or symptoms were reported regarding the genitourinary system. Derm: No deficits noted. No signs and/or symptoms reported regarding the dermatologic system. Skin is intact, is healthy with good turgor, Skin is dry, Skin is normal, Skin temperature is warm. Musculoskeletal: No deficits noted. No signs and/or symptoms reported regarding the musculoskeletal system. Circulation, motion, and sensation intact. Range of motion: intact in all extremities. Historical: - Allergies: 19:20 No Known Allergies; lg3 - PMHx: 19:20 Hyperlipidemia; Hypertension; lg3 - PSHx: 19:20 None; lg3 - Immunization history:: Adult Immunizations up to date. - Infectious Disease History:: Denies. - Social history:: Smoking status: Patient reports the use of cigarette tobacco products, smokes one pack cigarettes per day. Patient/guardian denies using alcohol, street drugs. Screenin:38 [facility] ED Fall Risk Assessment (Adult) History of falling in the last 3 months, cm10 including since admission No falls in past 3 months (0 pts) Confusion or Disorientation No (0 pts) Intoxicated or Sedated No (0 pts) Impaired Gait No (0 pts) Mobility Assist Device Used No (0 pt) Altered Elimination No (0 pt) Score/Fall Risk Level 0 - 2 = Low Risk Oriented to surroundings, Maintained a safe environment, Hourly rounding (assess needs \T\ fall precautionary measures) done. Abuse screen: Denies threats or abuse. Denies injuries from another. Nutritional screening: No deficits noted. Tuberculosis screening: No symptoms or risk factors identified. Assessment: 19:26 Reassessment: DR. COFFEY SHOWED EKG AT THIS TIME. cm10 19:30 General: Appears in no apparent distress. uncomfortable, Behavior is calm, cooperative. cm10 Pain: Complains of pain in chest Pain does not radiate. Pain currently is 9 out of 10 on a pain scale. Quality of pain is described as sharp, shooting, Pain began 3 hours ago. Neuro: No deficits noted. Level of Consciousness is awake, alert, obeys commands, Oriented to person, place, time, situation, Appropriate for age. Cardiovascular: Rhythm is SVT Chest pain is described as Pain is 9 out of 10 on a pain scale. Respiratory: No deficits noted. Airway is patent Respiratory effort is even, labored, Respiratory pattern is regular, symmetrical. 19:35 Reassessment: Patient appears in no apparent distress at this time. Patient and/or cm10 family updated on plan of care and expected duration. Pain level reassessed. Patient states symptoms have improved. Cardiovascular: Rhythm is sinus rhythm. 21:14 Reassessment: Patient appears in no apparent distress at this time. Patient and/or bm8 family updated on plan of care and expected duration. Pain level reassessed. Patient is alert, oriented x 3, equal unlabored respirations, skin warm/dry/pink. Patient denies pain at this time. Patient states feeling better. Patient states symptoms have improved. Vital Signs: 19:24 BP 120 / 92; Pulse 146; Resp 18; Temp 98.6(O); Pulse Ox 97% on R/A; Weight 129.73 kg; cm10 Height 5 ft. 9 in. ; Pain 9/10; 19:37 Pulse 90; Resp 18; Pulse Ox 99% ; cm10 20:30 BP 131 / 81; Pulse 88; Resp 15; Pulse Ox 94% ; cm10 21:14 BP 132 / 79; Pulse 80; Resp 18; Temp 98.6; Pulse Ox 95% ; Pain 0/10; bm8 19:24 Body Mass Index 42.23 (129.73 kg, 175.26 cm) cm10 19:24 Pain Scale: Adult cm10 21:14 Pain Scale: Adult bm8 Vitals: 19:24 Cardiac Rhythm Assessment SVT. cm10 19:37 Cardiac Rhythm Assessment Sinus rhythm. cm10 [place] Coma Score: 21:14 Eye Response: spontaneous(4). Motor Response: obeys commands(6). Verbal Response: bm8 oriented(5). Total: 15. ED Course: 19:07 Patient arrived in ED. im 19:09 Sal Coffey DO is Attending Physician. ms3 19:18 Nery Cobb, RN is Primary Nurse. cm10 19:20 Triage completed. lg3 19:20 Arm band placed on right wrist. lg3 19:24 EKG done, by ED staff, reviewed by Sal Coffey DO. cm10 19:25 Initial lab(s) drawn, by hi, sent to lab. Inserted saline lock: 18 gauge in left wrist, cm10 using aseptic technique. Blood collected. Flushed with 10 mL NS. 19:30 Inserted saline lock: 18 gauge in right wrist, using aseptic technique. Flushed with 10 cm10 mL NS. 19:36 EKG done, by ED staff, reviewed by Sal Coffey DO. cm10 19:38 Patient has correct armband on for positive identification. Placed in gown. Bed in low cm10 position. Call light in reach. Side rails up X2. Client placed on continuous cardiac and pulse oximetry monitoring. NIBP monitoring applied. campus monitor on. 19:40 Patient maintains SpO2 saturation greater than 95% on room air. cm10 20:30 XRAY Chest (1 view) In Process Unspecified. EDMS 21:03 Ming Self MD is Referral Physician. ms3 21:14 Provided Education on: post er care. bm8 21:14 No provider procedures requiring assistance completed. IV discontinued, intact, bm8 bleeding controlled, No redness/swelling at site. Pressure dressing applied, x2. Administered Medications: 19:30 Drug: Adenocard IVP 6 mg IVP once Route: IVP; Site: left wrist; cm10 19:31 Follow up: Response: No adverse reaction; No change in condition; Cardiac rhythm is cm10 unchanged 19:32 Drug: Adenocard IVP 12 mg IVP once Route: IVP; Site: left wrist; cm10 19:34 Follow up: Response: No adverse reaction; Marked relief of symptoms; Cardiac rhythm cm10 changed 19:36 Drug: Aspirin PO Chewable Tablet 324 mg PO once; 81 mg tablets x 4 Route: PO; cm10 21:15 Follow up: Response: No adverse reaction bm8 Medication: 19:38 VIS not applicable for this client. cm10 Outcome: 21:03 Discharge ordered by . ms3 21:14 Discharged to home ambulatory, bm8 21:14 Condition: stable 21:14 Discharge instructions given to patient, Instructed on discharge instructions, follow up and referral plans. no drinking with medication, no driving heavy equipment, medication usage, safety practices, Demonstrated understanding of instructions, follow-up care, medications, 21:16 Patient left the ED. bm8 Signatures: Dispatcher [employer] EDMS Velvet Michael RN RN lg3 Sal Coffey DO DO ms3 Emily Hobbs Clarissa, RN RN cm10 Bernard King RN RN bm8
[2025-01-29 21:43] VITALS: TEMP 98.6
[2025-01-29 21:46] VITALS: BP 132/79; O2SAT 95
--- NOTE | 2025-01-30 14:15 | EKG ---
Test Date: 2025-01-29 Test Time: 19:22:39 Drop Pit Worker: AF MEASUREMENT RESULTS: Intervals: Rate: 146 [place]: QRSD: 96 QT: 306 QTc: 476 [place]: P: [place]: QRS: -9 T: 128 INTERPRETIVE STATEMENTS: Supraventricular tachycardia Left ventricular hypertrophy with repolarization abnormality Abnormal ECG Compared to ECG 03/30/2023 01:09:50 Sinus bradycardia no longer present Electronically Signed On 01-30-25 14:12:51 CDT by Felix De Los Santos
--- NOTE | 2025-01-30 14:15 | EKG ---
Test Date: 2025-01-29 Test Time: 19:33:22 Seismic Engineer: AF MEASUREMENT RESULTS: Intervals: Rate: 104 [place]: 206 QRSD: 92 QT: 340 QTc: 447 [place]: P: 62 [place]: 206 QRS: -4 T: 71 INTERPRETIVE STATEMENTS: Sinus tachycardia Moderate voltage criteria for LVH, may be normal variant Nonspecific T wave abnormality Abnormal ECG Compared to ECG 01/29/2025 19:22:39 T-wave abnormality now present Supraventricular tachycardia no longer present Early repolarization no longer present Electronically Signed On 01-30-25 14:12:48 CDT by Felix De Los Santos
== END 2025-01-29 21:16 | disposition home or self-care (01) ==
LOC: ER 19:05
DX: I47.10 Supraventricular tachycardia, unspecified (principal); I10 Essential (primary) hypertension; E78.5 Hyperlipidemia, unspecified; F17.210 Nicotine dependence, cigarettes, uncomplicated
CPT/HCPCS: 93005 ×2; 85025; 80048; 36415; 83735; 85610; 84484; 71045; 96374; 99285; J0153; J7030

== ENCOUNTER 2025-01-30 17:16 | Observation (INO) | payer BC ==
--- OUTSIDE RECORDS SUMMARY | 2025-01-30 17:19 | XMS REPORT | Continuity of Care Document ---
Author Name Unknown Address [address] [place] [address] [facility] Address [address] [place] [address] Care Team Providers Care Cyber Security Administrator Name Role Phone Unavailable Unavailable Unavailable Encounters Start Date/Time End Date/Time Encounter Type Admission Type Attending Clinicians Care Facility Care Department Encounter ID Source 2022-12-27 10:28:58 2022-12-27 10:28:58 Outpatient [facility] [id number] Martin Vasquez 2022-12-25 10:50:37 2022-12-25 10:50:37 Outpatient [facility] [id number] Martin Vasquez Results Test Description Test Time Test Comments Results Result Co mments Source HERPES SIMPLEX [id number] 14:23:53* Test Item Value Reference Range Interpretation Comme nts HERPES SIMPLEX IgM (test code = 13290) 0.59 INDEX SEE BELOW INTERPRETATION U NITS RANGE ----- ----- NEGATIVE INDEX <=0.89 EQUIVOCAL INDEX 0.90-1.09 POSITIVE INDEX >=1.10 [id number] 04:20:56* Test Item Value Reference Range Interpretation Comme nts RPR RESULT (test code = 3501) NON-REACTIVE NON-REACTIVE RPR TITER (test code = 3500) NOT INDIC. TITER NOT INDIC. HIV 1/2 4TH GEN, RFLX [id number] 04:17:35* Test Item Value Reference Range Interpretation Comme nts HIV 1/2 4TH GEN, RFLX CONF ( test code = 3514) NON-REACTIVE NON-REACTIVE HEPATITIS PANEL, [id number] 04:17:35* Test Item Value Reference Range Interpretation Comme nts HEPATITIS A IgM (test code = 02112) NON-REACTIVE NON-REACTIVE HEPATITIS B CORE IgM (test code = 4644) NON-REACTIVE NON-REACTIVE HEPATITIS B SURF AG (test code = 2739) NON-REACTIVE NON-REACTIVE HEPATITIS C ANTIBODY (test code = 4675) NON-REACTIVE NON-REACTIVE INTERPRETATION HEPATITIS A: (test code = 2552) (NOTE) Hepatitis A serology shows no evidence of acute hepatitis A. INTERPRETATION HEPATITIS B: (test code = 85062) (NOTE) Hepatitis B serology shows no evidence of acute hepatitis B andno indication of exposure to hepatitis B virus in the previous isreal eight months. INTERPRETATION HEPATITIS C: (test code = 14951) (NOTE) Hepatitis C serology shows no evidence of exposure to hepatitisC virus at this time. It can take up to 12 months after exposure tothe hepatitis C virus for antibodies to become detectable in the blood in certain patients. HERPES SIMPLEX 1/2 [id number] 04:17:35* Test Item Value Reference Range Interpretation Comme nts HERPES SIMPLEX 1 IgG (test code = 97666) 105.000 INDEX SEE BELOW H INTERPRETATION U NITS RANGE ----- ----- NON-REACTIVE INDEX <1.000 REACTIVE INDEX >=1.000 HERPES SIMPLEX 2 IgG (test code = 61246) 0.070 INDEX SEE BELOW INTERPRETATION U NITS RANGE ----- ----- NON-REACTIVE INDEX <1.000 REACTIVE INDEX >=1.000 [facility] has important pathology staff changes effective 12/20/2022. New pathology staff will provide uninterrupted, excellent patient care and clinical consultation. See URL: [email or web address] UNLESS OTHERWISE INDICATED, ALL TESTING PERFORMED AT [facility] [address] [place] [id number] MANAGER SAFE: HERVE VILLASEÑOR M.D. JERE NUMBER [id number] [place]. [id number]
[2025-01-30] MEDS ORDERED: METOPROLOL TARTRATE 5 MG/5 ML INJ IV ONE (17:43)
[2025-01-30] MEDS ORDERED: MAGNESIUM SULFATE 1 gm IVPB 1 GM/100 ML BAG IV ONE (17:43)
[2025-01-30] MEDS ORDERED: NA CHLORIDE 0.9% 1,000 ML ONE (17:43)
[2025-01-30] MEDS ORDERED: METOPROLOL XL 50 MG TAB PO ONE (17:43)
[2025-01-30 17:52] LABS: Absolute Basophils 0.1 K/uL (0-0.5); Absolute Eosinophils 0.1 K/uL (0-0.5); Absolute Lymphocytes (CBC) 1.6 K/uL (0.7-4.9); Absolute Monocytes 0.8 K/uL (0.1-1.3); Absolute Neutrophil 2.3 K/uL (1.8-8.0); Basophils % 1.3 % (0-1.3); Eosinophils % 2.8 % (0-4.4); Hematocrit 43.1 % (39.6-49.0); Hemoglobin 14.6 g/dL (13.6-17.9); Lymphocytes % 32.8 % (15.3-44.8); MCH 30.4 pg (27.0-35.0); MCHC 33.9 g/dL (32.0-36.0); MCV 89.6 fL (80-100); MPV 8.5 fL (7.6-11.3); Neutrophils % 46.1 % (41.7-73.7); Nucleated Red Blood Cells % 0.1 % (0-0); Platelets 205 thou/uL (152-406); RBC Red Blood Cell Count 4.81 M/uL (4.33-5.43); Red Cell Distribution Width 14.1 % (12.1-15.2)
--- NOTE | 2025-01-30 17:56 | RAD REPORT ---
EXAMINATION: ONE VIEW CHEST XR CLINICAL INDICATION: CHEST PAIN TECHNIQUE: Frontal chest projection is submitted. Examination is limited by patient positioning and t echnique. COMPARISON: 01/29/2025 FINDINGS: Hazy appearance to the left inferior lung with crescentic opacity appears unchanged. Right lung is gr ossly clear. The heart is upper limit of normal in size. Right aortic arch noted. IMPRESSION: Stable chest since 01/29/2025
[2025-01-30] MEDS ORDERED: ADENOSINE 6 MG/ 2ML VIAL IV ONE (17:57)
[2025-01-30 18:13] LABS: Anion Gap 9.5 mEq/L (5.0-15.0); Potassium 3.5 mEq/L (3.5-5.1); Troponin High Sensitivity 10.8 pg/mL (<58.9)
[2025-01-30] MEDS ORDERED: ENOXAPARIN 100 MG/ML SYR SQ ONE (18:21)
[2025-01-30] MEDS ORDERED: ASPIRIN 81 MG CHEWABLE TABLET ONE (18:22)
[2025-01-30 18:29] LABS: PT Prothrombin Time 12.5 SECONDS (10-13.0); Protime INR 1.1
--- NOTE | 2025-01-30 18:38 | EDPHYS ---
Physician Documentation [facility] Name: Zackery Patrick Age: 69 yrs Sex: Male : 1955 Arrival Date: 01/30/2025 Time: 17:16 Bed 3 Private MD: ED Physician Gamaliel Silveira HPI: 01/30 18:33 This 69 yrs old Black Male presents to ER via Ambulatory with complaints of Chest Pain. channing 18:33 The patient or guardian reports chest pain that is located primarily in the substernal channing area, anterior chest wall, bilaterally. Onset: just prior to arrival. The pain does not radiate. Associated signs and symptoms: The patient has no apparent associated signs or symptoms. The chest pain is described as a heaviness, a pressure. Duration: The patient or guardian reports a single episode, that is still ongoing. Modifying factors: The symptoms are alleviated by nothing. the symptoms are aggravated by nothing. Severity of pain: At its worst the pain was moderate in the emergency department the pain is unchanged. The patient has not experienced similar symptoms in the past. Historical: - Allergies: 17:39 No Known Allergies; hb - Home Meds: 17:39 atorvastatin 20 mg/5 mL (4 mg/mL) oral suspension [Active]; lisinopril Oral [Active]; hb - PMHx: 17:39 Hyperlipidemia; Hypertension; hb - Immunization history:: Adult Immunizations up to date. - Infectious Disease History:: Denies. - Family history:: not pertinent. - Social history:: Smoking status: Patient denies any tobacco usage or history of. ROS: 18:33 Constitutional: Negative for fever, chills, and weight loss, Eyes: Negative for injury, channing pain, redness, and discharge, ENT: Negative for injury, pain, and discharge, Neck: Negative for injury, pain, and swelling, Respiratory: Negative for shortness of breath, cough, wheezing, and pleuritic chest pain, Abdomen/GI: Negative for abdominal pain, nausea, vomiting, diarrhea, and constipation, Back: Negative for injury and pain, : Negative for injury, bleeding, discharge, and swelling, MS/Extremity: Negative for injury and deformity, Skin: Negative for injury, rash, and discoloration, Neuro: Negative for headache, weakness, numbness, tingling, and seizure, Psych: Negative for depression, anxiety, suicide ideation, homicidal ideation, and hallucinations, Allergy/Immunology: Negative for hives, rash, and allergies, Endocrine: Negative for neck swelling, polydipsia, polyuria, polyphagia, and marked weight changes, Hematologic/Lymphatic: Negative for swollen nodes, abnormal bleeding, and unusual bruising, 18:33 Cardiovascular: Positive for chest pain, palpitations, Exam: 18:33 Constitutional: This is a well developed, well nourished patient who is awake, alert, channing and in no acute distress. Head/Face: Normocephalic, atraumatic. Eyes: Pupils equal round and reactive to light, extra-ocular motions intact. Lids and lashes normal. Conjunctiva and sclera are non-icteric and not injected. Cornea within normal limits. Periorbital areas with no swelling, redness, or edema. ENT: Nares patent. No nasal discharge, no septal abnormalities noted. Tympanic membranes are normal and external auditory canals are clear. Oropharynx with no redness, swelling, or masses, exudates, or evidence of obstruction, uvula midline. Mucous membranes moist. Neck: Trachea midline, no thyromegaly or masses palpated, and no cervical lymphadenopathy. Supple, full range of motion without nuchal rigidity, or vertebral point tenderness. No Meningismus. Chest/axilla: Normal chest wall appearance and motion. Nontender with no deformity. No lesions are appreciated. Respiratory: Lungs have equal breath sounds bilaterally, clear to auscultation and percussion. No rales, rhonchi or wheezes noted. No increased work of breathing, no retractions or nasal flaring. Abdomen/GI: Soft, non-tender, with normal bowel sounds. No distension or tympany. No guarding or rebound. No evidence of tenderness throughout. Back: No spinal tenderness. No costovertebral tenderness. Full range of motion. Male : Normal genitalia with no discharge or lesions. Skin: Warm, dry with normal turgor. Normal color with no rashes, no lesions, and no evidence of cellulitis. MS/ Extremity: Pulses equal, no cyanosis. Neurovascular intact. Full, normal range of motion., bilateral aka Neuro: Awake and alert, GCS 15, oriented to person, place, time, and situation. Cranial nerves II-XII grossly intact. Motor strength 5/5 in all extremities. Sensory grossly intact. Cerebellar exam normal. Normal gait. Psych: Awake, alert, with orientation to person, place and time. Behavior, mood, and affect are within normal limits. 18:33 Cardiovascular: Rate: tachycardic, actual rate is 157 bpm, Rhythm: regular, Pulses: Pulses are 4+ in bilateral radial, brachial, femoral, popliteal, posterior tibial and and dorsalis pedis arteries.. Heart sounds: normal, Edema: is not appreciated, JVD: is not appreciated, 18:33 ECG was reviewed by the Attending Physician. Vital Signs: 16:26 BP 105 / 80; Pulse 168; Resp 24; Temp 98.3(O); Pulse Ox 98% on R/A; Pain 8/10; hb 18:14 Weight 123.38 kg; ld1 18:16 BP 93 / 62; Pulse 131; Resp 18; Pulse Ox 95% on R/A; ld1 18:24 BP 93 / 62; Pulse 76; Resp 18; Pulse Ox 95% on R/A; ld1 19:24 BP 118 / 68; Pulse 81; Resp 18; Pulse Ox 97% on R/A; ld1 20:58 BP 116 / 58; Pulse 63; Resp 18; Pulse Ox 95% ; vc1 16:26 Pain Scale: Adult hb MDM: 17:39 Medical Screening Exam initiated channing 17:39 Medical Screening Exam initiated channing 19:54 Differential diagnosis: abnormal EKG, acute myocardial infarction, acute pericarditis, channing anxiety, coronary artery disease chest wall pain, congestive heart failure Cholelithiasis costochondritis, esophagitis, gastritis, herpes zoster, hiatal hernia, pancreatitis, peptic ulcer disease, pericarditis, pneumonia, pneumothorax, pulmonary embolus, stable angina, thoracic aortic disection, unstable angina. HEART Score: History: Moderately Suspicious (1), ECG: Non specific repolarization disturbance / LBTB / PM (1), Age: > or = 65 years (2), Risk Factors: > or = 3 Risk factors for atherosclerotic disease (2), [Hypercholesterolemia] [Hypertension] [+ Family HX] [Obesity] Troponin: < or = 1 x Normal Limit (0), Total Score = 6. The patient was given aspirin in the Emergency Department. NAI Risk Score: 1 - patient's age is greater or equal to 65 years, 1 - Three or more CAD risk factors, 1- Known CAD, 1 - ASA use in past 7 days, 1 - Recent [<24hrs] Severe Angina, TOTAL SCORE = 5. Data reviewed: vital signs, nurses notes, lab test result(s), EKG, radiologic studies, plain films. Consideration of Admission/Observation Patient was admitted/placed on observation. Escalation of care including admission/observation considered. I considered the following discharge prescriptions or medication management in the emergency department Medications were administered in the Emergency Department. See MAR. Independent interpretation of the following test(s) in the Emergency Department EKG: See my EKG interpretation above. Test considered but Not performed: Ultrasound NO 2 D ECHO. Historians other than the Patient: Spouse/Significant Other: WELL INFORMED. Care significantly affected by the following chronic conditions: Hypertension, Obesity. Counseling: I had a detailed discussion with the patient and/or guardian regarding the historical points, exam findings, and any diagnostic results supporting the discharge/admit diagnosis, lab results, radiology results, the need for further work-up and treatment in the hospital. 01/30 17:38 Order name: Basic Metabolic Panel; Complete Time: 18:32 hb 01/30 17:38 Order name: CBC with Diff; Complete Time: 18:32 hb 01/30 17:38 Order name: Troponin HS; Complete Time: 18:32 hb 01/30 17:41 Order name: BNP [facility] 01/30 17:41 Order name: PT-INR; Complete Time: 18:32 channing 01/30 18:33 Order name: TSH [facility] 01/30 19:13 Order name: Basic Metabolic Panel [facility] 01/30 19:13 Order name: Basic Metabolic Panel [facility] 01/30 19:13 Order name: CBC with Automated Diff [facility] 01/30 19:13 Order name: CBC with Automated Diff [facility] 01/30 19:13 Order name: Lipid Profile [facility] 01/30 19:13 Order name: Lipid Profile [facility] 01/30 19:13 Order name: Troponin High Sensitivity [facility] 01/30 17:38 Order name: XRAY Chest (1 view); Complete Time: 18:32 hb 01/30 19:13 Order name: Echo with Doppler [facility] 01/30 17:38 Order name: EKG; Complete Time: 17:39 hb 01/30 18:11 Order name: EKG; Complete Time: 18:12 channing 01/30 17:38 Order name: Cardiac monitoring; Complete Time: 17:39 hb 04 17:38 Order name: EKG - Nurse/Tech; Complete Time: 17:39 hb 01/30 17:38 Order name: IV Saline Lock; Complete Time: 17:39 hb 04 17:38 Order name: Labs collected and sent; Complete Time: 17:39 hb 01/30 17:38 Order name: O2 Per Protocol; Complete Time: 17:39 hb 01/30 17:38 Order name: O2 Sat Monitoring; Complete Time: 17:39 hb 04 18:11 Order name: EKG - Nurse/Tech; Complete Time: 19:22 channing EC:33 Rate is 157 beats/min. Rhythm is regular. QRS [place] is Normal. SD interval is normal. channing QRS interval is normal. No Q waves. T waves are Normal. No ST changes noted. Clinical impression: PSVT. Interpreted by me. Reviewed by me. Administered Medications: 17:48 Drug: Metoprolol PO 50 mg PO once Route: PO; ld1 19:22 Follow up: Response: No adverse reaction ld1 17:49 Drug: Magnesium Sulfate IVPB 1 grams IVPB once over 1 hrs Route: IVPB; Infused Over: 1 ld1 hrs; Site: left antecubital; 19:23 Follow up: IV Status: Completed infusion; IV Intake: 100ml ld1 17:49 Drug: NS 0.9% IV 500 ml IV at bolus once; to be given as a bolus over 30 minutes Route: ld1 IV; Rate: bolus; Site: left antecubital; 19:23 Follow up: IV Status: Completed infusion; IV Intake: 500ml ld1 17:49 Drug: NS 0.9% IV 500 ml 500 ml IV at 125 ml/hr once Volume: 500 ml; Route: IV; Rate: ld1 125 ml/hr; Site: left antecubital; 19:23 Follow up: IV Status: Completed infusion; IV Intake: 500ml ld1 17:49 Drug: Metoprolol IVP 5 mg IVP once; Hold for SBP <100 or HR <60. Route: IVP; Site: left ld1 antecubital; 19:22 Follow up: Response: No adverse reaction ld1 18:16 Drug: Metoprolol IVP 5 mg IVP once; Hold for SBP <100 or HR <60. Route: IVP; Site: 1 right antecubital; 19:23 Follow up: Response: No adverse reaction ld1 18:24 Drug: Enoxaparin Sub-Q 1 mg/kg Sub-Q once Route: Sub-Q; Site: abdomen; ld1 19:22 Follow up: Response: No adverse reaction ld1 18:25 Drug: Aspirin PO Chewable Tablet 162 mg PO once Route: PO; ld1 19:23 Follow up: Response: No adverse reaction ld1 18:31 Not Given (Duplicate Order): adenocard6 mg IVP once channing 18:31 Not Given (Duplicate Order): [id number] mg IVP once channing Disposition: 18:36 Critical Care:. channing Disposition Summary: 01/30/25 18:37 Hospitalization Ordered Notes: Hospitalization Status: Observation channing Provider: Prince channing Carvalho Location: Telemetry/MedSurg (observation) channing Condition: Fair channing Problem: new channing Symptoms: have improved channing Bed/Room Type: Standard [facility] Room Assignment: 221(01/30/25 19:30) kmf Diagnosis - Supraventricular tachycardia channing - Chest pain, unspecified channing Forms: - Medication Reconciliation Form channing - SBAR form channing - Leadership Thank You Letter channing Critical care time excluding procedures: 18:36 Critical care time: Bedside Care: 30 minutes, Consultation: 10 minutes, Family channing Intervention: 10 minutes. Total time: 50 minutes Signatures: Dispatcher [employer] Gamaliel Andre MD MD cha Baxter, Heather RN Sunni Cavazos RN RN Juliette Dyson kmf Corrections: (The following items were deleted from the chart) 19:30 18:37 channing kmf
--- NOTE | 2025-01-30 18:38 | ER ---
Nurse's Notes [facility] Name: Zackery Patrick Age: 69 yrs Sex: Male : 1955 Arrival Date: 01/30/2025 Time: 17:16 Bed 3 Private MD: Diagnosis: Supraventricular tachycardia;Chest pain, unspecified Presentation: 01/30 16:26 Chief complaint: Midsternal chest pain, SOB, and diaphoresis x 2 hours. Coronavirus hb screen: At this time, the client does not indicate any symptoms associated with coronavirus-19. Ebola Screen: No symptoms or risks identified at this time. 16:26 Method Of Arrival: Ambulatory hb 16:26 Initial Sepsis Screen: Does the patient meet any 2 criteria? No. Patient's initial hb sepsis screen is negative. Does the patient have a suspected source of infection? No. Patient's initial sepsis screen is negative. Risk Assessment: Do you want to hurt yourself or someone else? Patient reports no desire to harm self or others. Onset of symptoms was January 30, 2025. 16:26 Acuity: AL 2 hb Historical: - Allergies: 17:39 No Known Allergies; hb - Home Meds: 17:39 atorvastatin 20 mg/5 mL (4 mg/mL) oral suspension [Active]; lisinopril Oral [Active]; hb - PMHx: 17:39 Hyperlipidemia; Hypertension; hb - Immunization history:: Adult Immunizations up to date. - Infectious Disease History:: Denies. - Family history:: not pertinent. - Social history:: Smoking status: Patient denies any tobacco usage or history of. Screenin:51 [facility] ED Fall Risk Assessment (Adult) History of falling in the last 3 months, ld1 including since admission No falls in past 3 months (0 pts) Confusion or Disorientation No (0 pts) Intoxicated or Sedated No (0 pts) Impaired Gait No (0 pts) Mobility Assist Device Used No (0 pt) Altered Elimination No (0 pt) Score/Fall Risk Level 0 - 2 = Low Risk Oriented to surroundings, Hourly rounding (assess needs \T\ fall precautionary measures) done. Abuse screen: Denies threats or abuse. Denies injuries from another. Nutritional screening: No deficits noted. Tuberculosis screening: No symptoms or risk factors identified. Assessment: 17:51 General: Appears in no apparent distress. comfortable, Behavior is calm, cooperative, ld1 appropriate for age. Pain: Complains of pain in chest Pain does not radiate. Pain currently is 8 out of 10 on a pain scale. Quality of pain is described as heavy, throbbing, Pain began 1 hour ago. Is continuous. Neuro: Level of Consciousness is awake, alert, obeys commands, Oriented to person, place, time, Appropriate for age. Cardiovascular: Capillary refill < 3 seconds Patient's skin is warm and dry. Rhythm is SVT. Respiratory: Airway is patent Respiratory effort is even, unlabored. GI: Abdomen is round non-distended. : No signs and/or symptoms were reported regarding the genitourinary system. EENT: No signs and/or symptoms were reported regarding the EENT system. Derm: No signs and/or symptoms reported regarding the dermatologic system. Musculoskeletal: No signs and/or symptoms reported regarding the musculoskeletal system. 19:24 Reassessment: No changes from previously documented assessment. Patient and/or family ld1 updated on plan of care and expected duration. Pain level reassessed. Patient is alert, oriented x 3, equal unlabored respirations, skin warm/dry/pink. 20:59 Reassessment: Patient appears in no apparent distress at this time. No changes from vc1 previously documented assessment. Patient and/or family updated on plan of care and expected duration. Pain level reassessed. Patient is alert, oriented x 3, equal unlabored respirations, skin warm/dry/pink. Vital Signs: 16:26 BP 105 / 80; Pulse 168; Resp 24; Temp 98.3(O); Pulse Ox 98% on R/A; Pain 8/10; hb 18:14 Weight 123.38 kg; ld1 18:16 BP 93 / 62; Pulse 131; Resp 18; Pulse Ox 95% on R/A; ld1 18:24 BP 93 / 62; Pulse 76; Resp 18; Pulse Ox 95% on R/A; ld1 19:24 BP 118 / 68; Pulse 81; Resp 18; Pulse Ox 97% on R/A; ld1 20:58 BP 116 / 58; Pulse 63; Resp 18; Pulse Ox 95% ; vc1 16:26 Pain Scale: Adult hb ED Course: 17:18 Patient arrived in ED. im 17:31 EKG done, by ED staff, reviewed by Gamaliel Silveira MD. hb 17:39 Gamaliel Silveira MD is Attending Physician. channing 17:39 Triage completed. hb 17:39 Basic Metabolic Panel Sent. em1 17:39 CBC with Diff Sent. em1 17:39 Troponin HS Sent. em1 17:40 Initial lab(s) drawn, by me, sent to lab. Inserted saline lock: 18 gauge in left em1 antecubital area, using aseptic technique. Blood collected. Flushed with 10 mL NS. 17:40 Arm band placed on. hb 17:40 Client placed on continuous cardiac and pulse oximetry monitoring. NIBP monitoring hb applied. monitoring analyst on. Pulse ox on. NIBP on. 17:44 XRAY Chest (1 view) In Process Unspecified. EDMS 17:51 Sunni Reyes, MARTHA is Primary Nurse. ld1 17:51 No provider procedures requiring assistance completed. Patient maintains SpO2 ld1 saturation greater than 95% on room air. 17:51 Inserted saline lock: 18 gauge in right antecubital area, using aseptic technique. ld1 Blood collected. Flushed with 10 mL NS. 17:51 Patient has correct armband on for positive identification. Placed in gown. Bed in low ld1 position. Call light in reach. Side rails up X2. Pulse ox on. 18:37 Prince Carvalho MD is Hospitalizing Provider. channing 20:31 Tanner Merritt F[facility]-C is [facility]. dr[facility] 21:57 Patient admitted, IV remains in place. dd2 21:58 Provided Education on: ADMISSION INSTRUCTIONS. dd2 Administered Medications: 17:48 Drug: Metoprolol PO 50 mg PO once Route: PO; ld1 19:22 Follow up: Response: No adverse reaction ld1 17:49 Drug: Magnesium Sulfate IVPB 1 grams IVPB once over 1 hrs Route: IVPB; Infused Over: 1 ld1 hrs; Site: left antecubital; 19:23 Follow up: IV Status: Completed infusion; IV Intake: 100ml ld1 17:49 Drug: NS 0.9% IV 500 ml IV at bolus once; to be given as a bolus over 30 minutes Route: ld1 IV; Rate: bolus; Site: left antecubital; 19:23 Follow up: IV Status: Completed infusion; IV Intake: 500ml ld1 17:49 Drug: NS 0.9% IV 500 ml 500 ml IV at 125 ml/hr once Volume: 500 ml; Route: IV; Rate: ld1 125 ml/hr; Site: left antecubital; 19:23 Follow up: IV Status: Completed infusion; IV Intake: 500ml ld1 17:49 Drug: Metoprolol IVP 5 mg IVP once; Hold for SBP <100 or HR <60. Route: IVP; Site: left ld1 antecubital; 19:22 Follow up: Response: No adverse reaction ld1 18:16 Drug: Metoprolol IVP 5 mg IVP once; Hold for SBP <100 or HR <60. Route: IVP; Site: ld1 right antecubital; 19:23 Follow up: Response: No adverse reaction ld1 18:24 Drug: Enoxaparin Sub-Q 1 mg/kg Sub-Q once Route: Sub-Q; Site: abdomen; ld1 19:22 Follow up: Response: No adverse reaction ld1 18:25 Drug: Aspirin PO Chewable Tablet 162 mg PO once Route: PO; ld1 19:23 Follow up: Response: No adverse reaction ld1 18:31 Not Given (Duplicate Order): adenocard6 mg IVP once channing 18:31 Not Given (Duplicate Order): [id number] mg IVP once channing Medication: 17:51 VIS not applicable for this client. ld1 Intake: 19:23 IV: 500ml; Total: 500ml. ld1 19:23 IV: 500ml; Total: 1000ml. ld1 19:23 IV: 100ml; Total: 1100ml. ld1 Outcome: 18:37 Decision to Hospitalize by Provider. channing 21:57 Admitted to ER Hold. Please see [facility] for further documentation. dd2 21:57 Condition: stable 21:57 Instructed on the need for admit, Demonstrated understanding of instructions, 21:58 Admitted to Med/surg accompanied by tech, room 221, with chart, dd2 21:59 Patient left the ED. dd2 Signatures: Dispatcher [employer] EDGamaliel Kenny MD MD cha Martinez, Eric em1 Blanche Doherty RN RN hb Sims, Lauren, RN RN ld1 Salima Wong RN RN vc1 Emily Hobbs DIANA, RN RN dd2 Merritt, Tanner, SCANNING SUPERVISOR-C SCANNING SUPERVISOR-[id number]
[2025-01-30] MEDS ORDERED: NITROGLYCERIN 0.4 MG/TAB SL PRN (19:09)
--- NOTE | 2025-01-30 19:15 | P.HP ---
Certification for Inpatient Patient admitted to: Observation With expected LOS: <2 Midnights Practitioner: I am a practitioner with admitting privileges, knowledge of patient current condition, hospital course, and medical plan of care. Services: Services provided to patient in accordance with Admission requirements found in Title 42 Section 412.3 of the Code of Federal Regulations Patient History Date of Service: 01/30/25 Reason for admission: Chest pain and SVT History of Present Illness: Patient is a 69-year-old -Portuguese male with a past medical history of hypertension and hyperlipidemia. He is presenting to the ER complaining of sudden onset of chest pain associated with shortness of breath. Patient has been having orthopnea as well. He has no lower extremity edema. Was found to be in severe SVT in the ER with heart rate in the 150s. This was terminated by adenosine and metoprolol. During my evaluation, patient's heart rate was in the 70s and systolic blood pressure 93. He is being admitted for cardiology evaluation Allergies No Known Allergies Allergy (Unverified 04/11/17 11:26) Physical Examination - Physical Exam General: Acute distress HEENT: Atraumatic, Normocephalic Respiratory: Clear to auscultation bilaterally, Normal air movement Cardiovascular: No edema, Normal pulses, Regular rate/rhythm Neurological: Normal speech - Studies Laboratory Data (last 24 hrs) 01/30/25 01/30/25 01/30/25 17:41 17:41 17:41 WBC 4.90 Hgb 14.6 Hct 43.1 Plt Count 205 PT 12.5 INR 1.10 Sodium 137 D Potassium 3.5 BUN 12 Creatinine 1.38 H Glucose 135 H Assessment and Plan - Problems (Diagnosis) (1) Chest pain Current Visit: Yes Status: Acute (2) SVT (supraventricular tachycardia) Current Visit: Yes Status: Acute (3) Hypertension Current Visit: Yes Status: Acute (4) Hyperlipidemia Current Visit: Yes Status: Acute - Plan Assessment This is a 69-year-old frequent Portuguese male who is being admitted after he pre sented with chest pain and was found to be in SVT. He received IV metoprolol and adenosine in the ER which terminated his SVT. He is not hemodynamically stable but with borderline blood pressure. He is being admitted for cardiology evaluation SVT Chest painACS rule out CKD stage III Hypertension Hyperlipidemia Plan: Will admit under observation with telemetry Trend troponin Obtain a 2D echo Cardiology consulted Schedule aspirin, high intensity statin Normal saline infusion due to borderline blood pressure Resume rest of home medication as indicated Repeat BMP tomorrow - Advance Directives Does patient have a Living Will: No Does patient have a Durable POA for Healthcare: No
[2025-01-30] MEDS: NA CHLORIDE 0.9% 1,000 ML IV SCH (23:19)
[2025-01-30] MEDS: ATORVASTATIN 80 MG TAB PO SCH (23:19)
[2025-01-31 00:14] LABS: Troponin High Sensitivity 21.4 pg/mL (<58.9)
[2025-01-31 06:45] LABS: Absolute Basophils 0.1 K/uL (0-0.5); Absolute Eosinophils 0.2 K/uL (0-0.5); Absolute Monocytes 0.7 K/uL (0.1-1.3); Absolute Neutrophil 1.3 K/uL (1.8-8.0); Basophils % 1.3 % (0-1.3); Eosinophils % 3.9 % (0-4.4); Hematocrit 37.8 % (39.6-49.0); Hemoglobin 12.8 g/dL (13.6-17.9); Lymphocytes % 47.5 % (15.3-44.8); MCH 30.5 pg (27.0-35.0); MCV 89.8 fL (80-100); MPV 8.7 fL (7.6-11.3); Monocytes % 15.8 % (3.3-12.3); Neutrophils % 31.5 % (41.7-73.7); Nucleated Red Blood Cells % 0.2 % (0-0); Platelets 167 thou/uL (152-406); RBC Red Blood Cell Count 4.21 M/uL (4.33-5.43); Red Cell Distribution Width 13.9 % (12.1-15.2)
[2025-01-31 07:03] LABS: Anion Gap 7.5 mEq/L (5.0-15.0); Potassium 3.5 mEq/L (3.5-5.1)
[2025-01-31] MEDS: ENOXAPARIN 40 MG/0.4 ML SQ SCH (08:53)
[2025-01-31] MEDS: ASPIRIN EC 81 MG TAB PO SCH (08:53)
[2025-01-31 09:00] VITALS: BMI 16.7
--- NOTE | 2025-01-31 10:30 | P.PN ---
Subjective Date of Service: 01/31/25 Chief Complaint: Chest pain and SVT Subjective: No new changes No complaints. Patient anxious to be discharged Review of Systems 10-point ROS is otherwise unremarkable Physical Examination - Vital Signs Temperature: 98.5 F Blood Pressure: 140/82 Pulse: 57 Respirations: 14 Pulse Ox (%): 100 - Physical Exam General: Alert HEENT: Atraumatic Neck: Supple Cardiovascular: No edema, Normal pulses, Regular rate/rhythm Gastrointestinal: Normal bowel sounds, Soft and benign, Non-distended Neurological: Normal gait, Normal strength at 5/5 x4 extr, Normal tone - Studies Laboratory Data (last 24 hrs) 01/30/25 01/30/25 01/30/25 17:41 17:41 17:41 WBC 4.90 Hgb 14.6 Hct 43.1 Plt Count 205 PT 12.5 INR 1.10 Sodium 137 D Potassium 3.5 BUN 12 Creatinine 1.38 H Glucose 135 H Assessment And Plan - Plan 1. Chest pain associated with SVT - Currently resolved after being given adenosine and metoprolol in ER - Pulse rate currently in the 50s - Serial troponins negative x 2 - 2D echo ordered - Cardiology consulted
[2025-01-31 15:07] VITALS: O2SAT 99
[2025-01-31 16:17] VITALS: BP 160/75; TEMP 98.4
--- NOTE | 2025-01-31 16:20 | P.DS ---
Admission Date: 01/30/25 Discharge Date: 01/31/25 Reason for Admission: Chest pain and SVT Hospital Course: 69-year-old male, initially presented with complaints of chest pain. In the ER, noted to be in SVT in the 150s so given metoprolol and adenosine with conversion to sinus rhythm. Serial troponins were negative x 2. 2D echo was ordered and and cardiology were consulted. The following day, which was a Sunday, patient was very anxious to be discharged. Discussed with on-call rubber insulator, Dr. De Los Santos, who said that he may see the patient the following day however patient did not want to stay 1 more extra day so again discussed with Dr. De Los Santos who recommended outpatient follow-up in his clinic for 2D echo study. Patient was then discharged with instructions to follow-up with Dr. De Los Santos within 1 to 2 weeks in his clinic. Of note, patient's pulse was in the 50s at time of discharge so did not prescribe metoprolol Vital Signs/Physical Exam: Temp Pulse Resp BP Pulse Ox 97.8 F 54 16 157/75 H 99 01/31/25 12:00 01/31/25 12:00 01/31/25 12:00 01/31/25 12:00 01/31/25 12:00 HEENT: Atraumatic Neck: Supple Respiratory: Clear to auscultation bilaterally Cardiovascular: No edema, Normal pulses, Regular rate/rhythm Gastrointestinal: Normal bowel sounds, Soft and benign, Non-distended Neurological: Normal gait, Normal speech, Normal strength at 5/5 x4 extr Laboratory Data at Discharge: WBC 4.10 thou/uL (4.3-10.9) L 01/31/25 06:27 Hgb 12.8 g/dL (13.6-17.9) L D 01/31/25 06:27 Hct 37.8 % (39.6-49.0) L 01/31/25 06:27 Plt Count 167 thou/uL (152-406) 01/31/25 06:27 PT 12.5 SECONDS (10-13.0) 01/30/25 17:41 INR 1.10 01/30/25 17:41 Sodium 137 mEq/L (136-145) 01/31/25 06:27 Potassium 3.5 mEq/L (3.5-5.1) 01/31/25 06:27 BUN 10 mg/dL (7-18) 01/31/25 06:27 Creatinine 0.97 mg/dL (0.70-1.30) 01/31/25 06:27 Glucose 101 mg/dL (74-106) 01/31/25 06:27 Triglycerides 76 mg/dL (<150) 01/30/25 23:30 Cholesterol 174 mg/dL (<200) 01/30/25 23:30 HDL Cholesterol 56 mg/dL (40-60) 01/30/25 23:30 Cholesterol/HDL Ratio 3.11 01/30/25 23:30 Followup: Felix De Los Santos MD [ACTIVE - CAN ADMIT] - 1-2 Weeks WESLEY OLSON [Primary Care Provider] -
--- NOTE | 2025-02-02 10:55 | EKG ---
Test Date: 2025-01-30 Test Time: 17:31:45 Printed Circuit Designer: HB MEASUREMENT RESULTS: Intervals: Rate: 157 GA: QRSD: 96 QT: 296 QTc: 478 [place]: P: GA: QRS: -20 T: 126 INTERPRETIVE STATEMENTS: Supraventricular tachycardia Left ventricular hypertrophy with repolarization abnormality Abnormal ECG Compared to ECG 01/29/2025 19:33:22 Early repolarization now present Sinus tachycardia no longer present T-wave abnormality no longer present Electronically Signed On 02-02-25 10:50:27 CDT by Felix De Los Santos
--- NOTE | 2025-02-02 10:55 | EKG ---
Test Date: 2025-01-30 Test Time: 19:20:15 Lawyer: Octavio CAMARA MEASUREMENT RESULTS: Intervals: Rate: 72 MS: 186 QRSD: 96 QT: 386 QTc: 422 [place]: P: 43 MS: 186 QRS: 0 T: -23 INTERPRETIVE STATEMENTS: Normal sinus rhythm Voltage criteria for left ventricular hypertrophy T wave abnormality, consider lateral ischemia Abnormal ECG Compared to ECG 01/29/2025 19:33:22 Possible ischemia now present Sinus tachycardia no longer present T-wave abnormality still present Electronically Signed On 02-02-25 10:50:16 CDT by Felix De Los Santos
== END 2025-01-31 16:45 | disposition home or self-care (01) ==
LOC: ER 17:16 → 2ND 19:09
PROVIDERS: ADMIT Internal Medicine; ATTEND Internal Medicine
DX: I47.10 Supraventricular tachycardia, unspecified (principal); R07.9 Chest pain, unspecified; I10 Essential (primary) hypertension; E78.5 Hyperlipidemia, unspecified; R06.02 Shortness of breath; N18.30 Chronic kidney disease, stage 3 unspecified
CPT/HCPCS: 85025 ×2; 80048 ×2; 36415; 85610; 80061; 82947 ×3; 84443; 84484 ×2; 83880; 71045; 96372; 99285; J0153; J3475; J1650 ×2; J7030 ×3; 93005; G0378